=== PATIENT | male | born 1985 | race Caucasian/White ===

== ENCOUNTER → 2021-01-03 10:20 | Outpatient (CLI) | payer OTHER, SELFPAY ==
[2021-01-03 09:43] VITALS: BMI 30.4
[2021-01-03 12:34] LABS: Absolute Lymphocyte Count 2.31 X10^3/uL (0.83-4.51); Absolute Neutrophil Count 4.4 X10^3/uL (2.0-7.7); Basophil# 0.06 X10^3/uL; Basophil% 0.8 % (0-1); Eosinophil# 0.33 X10^3/uL; Eosinophils% 4.3 % (0-5); Hematocrit 46.9 % (40-54); Lymphocyte # 2.31 X10^3/ul (0.83-4.51); Lymphocyte % 29.9 % (19-41); Mean Corp Hgb Conc 34.1 g/dL (32-36); Mean Corpuscular Hgb 29.5 pg (27.0-32.0); Mean Corpuscular Volume 86.5 fL (80-94); Mean Platelet Vol. 10.7 fl (6.2-12.0); Monocyte# 0.62 X10^3/uL; NRBC Flagged by Analyzer 0 % (0-5); Neutrophil # 4.37 X10^3/uL (2.7-7.7); Neutrophil % 56.6 % (47-70); Platelet Count 266 K/mm3 (150-450); RBC Distribution Width CV 11.8 % (11.6-14.6); RBC Distribution Width SD 37.3 fl (35.1-43.9); Red Blood Count 5.42 M/mm3 (4.6-6.2); White Blood Count 7.7 K/mm3 (4.4-11.0)
[2021-01-03 13:04] LABS: ALB/GLOB Ratio 1.3 RATIO (0.9-2.4); AST(SGOT) 15 U/L (15-37); Alanine Aminotransfer ALT/SGPT 46 U/L (16-61); Albumin, Serum 4.5 g/dL (3.2-5.0); Alkaline Phosphatase 64 U/L (45-117); Anion Gap 3 (5-15); BUN 18 mg/dL (7-18); BUN/Creat Ratio 16.2 RATIO (10-20); Calcium,Total 9.6 mg/dL (8.5-10.1); Chloride 102 mmol/L (98-107); Creatinine, Serum 1.11 mg/dL (0.70-1.30); EST Glomerular Filtration Rate 80 mL/min (>60); Est Glom Filt Rate - Afr Amer 96 mL/min (>60); Globulin 3.5 g/dL (2.2-4.2); Glucose 101 mg/dL (74-106); Potassium 3.9 mmol/L (3.5-5.1); Sodium Level 137 mmol/L (136-145); T4 Free Direct 0.97 ng/dL (0.76-1.46); Thyroid Stim Hormone (TSH) 2.06 uIU/mL (0.358-3.74)
== END ==
PROVIDERS: PCP Internal Medicine; Referring Provider Internal Medicine; Visit Provider Internal Medicine
DX: K59.09 Other constipation (principal)
CPT/HCPCS: 36415; 80053; 84439; 84443; 85025

== ENCOUNTER → 2021-01-14 16:08 | Outpatient (CLI) | payer OTHER, SELFPAY ==
[2021-01-03 09:43] VITALS: BMI 30.4
== END ==
PROVIDERS: PCP Internal Medicine; Visit Provider Internal Medicine
DX: G47.10 Hypersomnia, unspecified (principal)
CPT/HCPCS: 95806

== ENCOUNTER → 2023-12-25 | Outpatient (CLI) | payer BC, SELFPAY ==
[2023-12-25 11:01] LABS: Absolute Lymphocyte Count 2.51 X10^3/uL (0.83-4.51); Absolute Neutrophil Count 4.5 X10^3/uL (2.0-7.7); Basophil# 0.06 X10^3/uL; Basophil% 0.7 % (0-1); Eosinophil# 0.54 X10^3/uL; Eosinophils% 6.5 % (0-5); Hematocrit 45.7 % (40-54); Hemoglobin 15.8 g/dL (13.0-16.5); Lymphocyte # 2.51 X10^3/ul (0.83-4.51); Lymphocyte % 30.2 % (19-41); Mean Corp Hgb Conc 34.6 g/dL (32-36); Mean Corpuscular Hgb 29.3 pg (27.0-32.0); Mean Corpuscular Volume 84.6 fL (80-94); Mean Platelet Vol. 9.9 fl (6.2-12.0); Monocyte# 0.63 X10^3/uL; Monocyte% 7.6 % (0-10); NRBC Flagged by Analyzer 0 % (0-5); Neutrophil # 4.53 X10^3/uL (2.7-7.7); Neutrophil % 54.5 % (47-70); Platelet Count 260 K/mm3 (150-450); RBC Distribution Width CV 12.6 % (11.6-14.6); RBC Distribution Width SD 38.5 fl (35.1-43.9); White Blood Count 8.3 K/mm3 (4.4-11.0)
[2023-12-25 11:26] LABS: ALB/GLOB Ratio 1.2 RATIO (0.9-2.4); AST(SGOT) 15 U/L (15-37); Alanine Aminotransfer ALT/SGPT 36 U/L (16-61); Albumin, Serum 4.2 g/dL (3.2-5.0); Alkaline Phosphatase 71 U/L (45-117); Anion Gap 4 (5-15); BUN 17 mg/dL (7-18); Calcium,Total 9.3 mg/dL (8.5-10.1); Chloride 103 mmol/L (98-107); Cholesterol 256 mg/dL (200); Creatinine, Serum 1.06 mg/dL (0.70-1.30); EST Glomerular Filtration Rate 83 mL/min (>60); Est Glom Filt Rate - Afr Amer 100 mL/min (>60); Ferritin 28 ng/mL (26-388); Globulin 3.4 g/dL (2.2-4.2); Glucose 100 mg/dL (74-106); High Density Lipoprotein 43 mg/dL; Iron 104 ug/dL (65-175); Iron Binding Capacity,Total 407 ug/dL (250-450); PERCENT IRON SATURATION 25.6 % (15.0-55.0); Potassium 3.8 mmol/L (3.5-5.1); Protein, Total 7.6 g/dL (6.4-8.2); Sodium Level 138 mmol/L (136-145); Thyroid Stim Hormone (TSH) 2.14 uIU/mL (0.358-3.74); Triglycerides 235 mg/dL; Very Low Density Lipoprotein 47 mg/dL (5-40)
[2023-12-27 09:23] LABS: Vitamin B12 559 pg/mL (211-911); Vitamin D,25 Hydroxy 26.7 ng/mL
== END | disposition home or self-care (01) ==
PROVIDERS: PCP Nurse Practitioner Family; Referring Provider Internal Medicine; Visit Provider Internal Medicine
DX: K59.04 Chronic idiopathic constipation (principal); Z13.220 Encounter for screening for lipoid disorders; Z13.21 Encounter for screening for nutritional disorder; K92.1 Melena; R14.0 Abdominal distension (gaseous)
CPT/HCPCS: 36415; 80053; 80061; 82306; 82607; 82728; 82746; 83540; 83550; 83735; 84443; 85025

== ENCOUNTER → 2024-05-20 | Outpatient (CLI) | payer BC, SELFPAY ==
[2024-05-20 10:46] LABS: Absolute Lymphocyte Count 2.14 X10^3/uL (0.83-4.51); Absolute Neutrophil Count 4.5 X10^3/uL (2.0-7.7); Basophil# 0.05 X10^3/uL; Basophil% 0.6 % (0-1); Eosinophil# 0.24 X10^3/uL; Eosinophils% 3.1 % (0-5); Hematocrit 44.7 % (40-54); Hemoglobin 15.6 g/dL (13.0-16.5); Lymphocyte # 2.14 X10^3/ul (0.83-4.51); Lymphocyte % 27.6 % (19-41); Mean Corp Hgb Conc 34.9 g/dL (32-36); Mean Corpuscular Hgb 29.8 pg (27.0-32.0); Mean Corpuscular Volume 85.5 fL (80-94); Monocyte% 10.3 % (0-10); NRBC Flagged by Analyzer 0 % (0-5); Neutrophil # 4.49 X10^3/uL (2.7-7.7); Neutrophil % 58.1 % (47-70); Platelet Count 246 K/mm3 (150-450); RBC Distribution Width CV 12.2 % (11.6-14.6); RBC Distribution Width SD 37.7 fl (35.1-43.9); Red Blood Count 5.23 M/mm3 (4.6-6.2); White Blood Count 7.7 K/mm3 (4.4-11.0)
[2024-05-20 11:57] LABS: ALB/GLOB Ratio 1.3 RATIO (0.9-2.4); AST(SGOT) 17 U/L (15-37); Alanine Aminotransfer ALT/SGPT 38 U/L (16-61); Albumin, Serum 4.1 g/dL (3.2-5.0); Alkaline Phosphatase 74 U/L (45-117); Anion Gap 1 (5-15); BUN 18 mg/dL (7-18); BUN/Creat Ratio 17.6 RATIO (10-20); Calcium,Total 9.5 mg/dL (8.5-10.1); Chloride 108 mmol/L (98-107); Cholesterol 168 mg/dL (200); Creatinine, Serum 1.02 mg/dL (0.70-1.30); EST Glomerular Filtration Rate 86 mL/min (>60); Est Glom Filt Rate - Afr Amer 104 mL/min (>60); Globulin 3.2 g/dL (2.2-4.2); Glucose 106 mg/dL (74-106); High Density Lipoprotein 45 mg/dL; Potassium 4.2 mmol/L (3.5-5.1); Protein, Total 7.3 g/dL (6.4-8.2); Sodium Level 141 mmol/L (136-145); Triglycerides 96 mg/dL; Very Low Density Lipoprotein 19 mg/dL (5-40)
[2024-05-23 08:02] LABS: Vitamin B12 533 pg/mL (211-911); Vitamin D,25 Hydroxy 31.9 ng/mL
== END | disposition home or self-care (01) ==
LOC: LAB 10:00
PROVIDERS: PCP Nurse Practitioner Family; Referring Provider Nurse Practitioner Family; Visit Provider Nurse Practitioner Family
DX: K59.04 Chronic idiopathic constipation (principal); Z13.220 Encounter for screening for lipoid disorders; Z13.21 Encounter for screening for nutritional disorder
CPT/HCPCS: 36415; 80053; 80061; 82306; 82607; 82746; 84443; 85025

== ENCOUNTER → 2024-11-20 | Outpatient (CLI) | payer BC, SELFPAY ==
[2024-11-20 16:25] LABS: Absolute Lymphocyte Count 2.92 X10^3/uL (0.83-4.51); Absolute Neutrophil Count 5.6 X10^3/uL (2.0-7.7); Basophil# 0.05 X10^3/uL; Basophil% 0.5 % (0-1); Eosinophil# 0.25 X10^3/uL; Eosinophils% 2.6 % (0-5); Hematocrit 42.3 % (40-54); Lymphocyte # 2.92 X10^3/ul (0.83-4.51); Lymphocyte % 30.6 % (19-41); Mean Corp Hgb Conc 35.5 g/dL (32-36); Mean Corpuscular Hgb 30.2 pg (27.0-32.0); Mean Corpuscular Volume 85.1 fL (80-94); Mean Platelet Vol. 10.2 fl (6.2-12.0); Monocyte# 0.62 X10^3/uL; Monocyte% 6.5 % (0-10); NRBC Flagged by Analyzer 0 % (0-5); Neutrophil # 5.64 X10^3/uL (2.7-7.7); Neutrophil % 59.3 % (47-70); Platelet Count 281 K/mm3 (150-450); RBC Distribution Width SD 37.1 fl (35.1-43.9); Red Blood Count 4.97 M/mm3 (4.6-6.2); White Blood Count 9.5 K/mm3 (4.4-11.0)
[2024-11-20 16:36] LABS: Erythrocyte Sedimentation Rate < 1 mm/hr (0-20)
[2024-11-20 23:52] LABS: ALB/GLOB Ratio 1.9 RATIO (0.9-2.4); AST(SGOT) 27 U/L (<=37); Alanine Aminotransfer ALT/SGPT 41 U/L (<=46); Albumin, Serum 4.7 g/dL (3.5-5.0); Alkaline Phosphatase 71 U/L (40-129); BUN 13 mg/dL (4-19); CRP < 3.00 mg/L (0.0-3.0); Creatinine, Serum 0.91 mg/dL (0.70-1.20); EST Glomerular Filtration Rate 109 (>60); Globulin 2.5 g/dL (2.2-4.2); Glucose 86 mg/dL (70-99); Protein, Total 7.2 g/dL (5.9-8.4); Total Bilirubin 0.45 mg/dL (0.00-1.30)
[2024-11-21 01:58] LABS: Anion Gap 16 (5-15); Calcium,Total 9.6 mg/dL (7.6-11.0); Carbon Dioxide 24.2 mmol/L (21.0-32.0); Chloride 101 mmol/L (98-108); Sodium Level 142 mmol/L (133-145)
== END | disposition home or self-care (01) ==
LOC: LAB 15:25
PROVIDERS: PCP Nurse Practitioner Family; Referring Provider Internal Medicine; Visit Provider Internal Medicine
DX: R19.4 Change in bowel habit (principal); K92.1 Melena; K63.89 Other specified diseases of intestine
CPT/HCPCS: 36415; 80053; 85025; 85652; 86140

== ENCOUNTER → 2025-02-03 | Outpatient (CLI) | payer BC, SELFPAY ==
[2025-02-03 09:22] LABS: Microalbumin,Random Urine < 12.0 mg/L (NO RANGE EST.); Microalbumin:Creatinine Ratio UNABLE TO CALCULATE mg/g CRE
[2025-02-03 09:29] LABS: Cholesterol 187 mg/dL (<=200); High Density Lipoprotein 46 mg/dL; Low Density Lipoprotein Calc. 115 mg/dL; Triglycerides 131 mg/dL; Very Low Density Lipoprotein 26 mg/dL (5-40); cholesterol:hdl ratio screen 4.06
[2025-02-05 16:09] LABS: PSA, Total 1.3 ng/mL (0.0-4.0)
== END | disposition home or self-care (01) ==
LOC: LAB 08:06
PROVIDERS: PCP Nurse Practitioner Family; Referring Provider Nurse Practitioner Family; Visit Provider Nurse Practitioner Family
DX: E78.5 Hyperlipidemia, unspecified (principal); Z12.5 Encounter for screening for malignant neoplasm of prostate; R03.0 Elevated blood-pressure reading, without diagnosis of hypertension
CPT/HCPCS: 36415; 80061; 82043; 82570; 84153; 84443

== ENCOUNTER → 2025-04-02 | Outpatient (CLI) | payer BC, SELFPAY ==
--- OUTSIDE RECORDS SUMMARY | 2025-04-02 23:06 | XMS RPT_ITS | CCD ---
Author Organization [facility] Care Team Providers Care Grain Farmer Name Role Phone Albert RETORT FURNACE HELPER-CMagaly Primary Care Provider Dr. Jackson Timmons MD Attending Provider Dr. Jackson Timmons MD Referring Provider [phone] Magaly Lewis Attending Provider Albert MCDOWELL-CMagaly Referring Provider Magaly Price Attending Unavailable Magaly Price Referring Unavailable Magaly Price Primary Care Unavailable Jackson Timmons Attending Unavailable Jackson Timmons Referring Unavailable Magaly Price Primary Care Unavailable Jackson Timmons Attending Unavailable Magaly Price Primary Care Unavailable Magaly Price Attending Unavailable Magaly Price Referring Unavailable Magaly Price Primary Care Unavailable Medications Current Medications Medication Drug Class(es) Dates Sig (Normalized) Sig (Original) 24 hr buPROPion hydrochloride 300 mg extended release oral tablet (9 sources) Aminoketone Start: 04-04-2021 End: 07-28-2021 take 1 tablet by mouth once daily in the morning Bupropion Hcl 300 mg tablet extended release 24 hr Active 300 mg PO EVERY MORNING July 28, 2021 10:20am Start: 02-14-2021 End: 04-04-2021 take 1 tablet by mouth once daily in the morning Bupropion Hcl (Wellbutrin Xl) 150 mg tablet extended release 24 hr Discontinued 150 mg PO EVERY MORNING February 14, 2021 12:00am April 04, 2021 9:02am ipratropium bromide 0.042 mg/actuat metered dose nasal spray (3 sources) Anticholinergic Start: 02-14-2021 Ipratropium Br omide 42 mcg (0.06 %) spray,non-aerosol Active 2 NMA INTRANASAL 3 to 4 times per day as needed for allergy symptoms February 14, 2021 12:00am administer into each nostril Start: 02-14-2021 take 1 spray(s) nasa l route three to four times daily Ipratropium [place] Active 2 SPRAY INTRANASAL 3 to 4 times per day February 14, 2021 12:00am administer into each nostril melatonin 10 mg oral tablet (3 sources) Start: 12-31-2020 take 2 tablets by mouth at bedtime as needed Melatonin 10 mg tablet Active 20 mg PO BEDTIME as needed December 31, 2020 12:00am Start: 12-31-2020 take 20 mg by mouth at bedtime Melatonin Active 20 MG PO BEDTIME December 31, 2020 12:00am [place]-3 Fatty Acids (1 source) Start: 12-31-2020 take 1000 mg by mout h once daily [place]-3 Fatty Acids Active 1000 MG PO DAILY December 31, 2020 12:00am [place]-3 Fatty Acids 1,000 mg capsule (2 sources) Start: 12-31-2020 take 1 capsule by mouth once daily [place]-3 Fatty Acids 1,000 mg capsule Active 1000 mg PO DAILY December 31, 2020 12:00am psyllium 400 mg oral capsule (3 sources) Start: 12-31-2020 Psyllium Husk (Metamucil) 0.4 gram capsule Active 0.4 g PO DAILY December 31, 2020 12:00am Valerian Root (3 sources) Start: 12-31-2020 take 1 capsule by mouth at bedtime Valerian Root 100 mg capsule Active 100 mg PO AT BEDTIME December 31, 2020 12:00am Start: 12-31-2020 take 100 mg by mouth at bedtim e Valerian Root Active 100 MG PO AT BEDTIME December 31, 2020 12:00am Completed/Discontinued Medications Medication Drug Class(es) Dates Sig (Normalized) Sig (Original) biotin 1 mg oral capsule (3 sources) Start: 12-31-2020 End: 04-04-2021 take 1 capsule by mouth once daily Biotin 1 mg capsule Discontinued 1 mg PO DAILY December 31, 2020 12:00am April 04, 2021 8:53am 24 hr guanFACINE 1 mg extended release oral tablet (3 sources) Central alpha-2 Adrenergic Agonist Start: 01-03-2021 End: 02-14-2021 Guanfacine 1 mg tablet extended release 24 hr Discontinued 1 mg PO EVERY EVENING 60 January 03, 2021 12:00am February 14, 2021 8:06am Start 1 mg daily for 2 weeks. May increase if needed to 2 mg magnesium oxide 400 mg oral tablet (3 sources) Start: 12-31-2020 End: 02-14-2021 take 1 tablet by mouth once daily Magnesium Oxide 400 mg (241.3 mg magnesium) tablet Discontinued 400 mg PO DAILY December 31, 2020 12:00am February 14, 2021 8:06am Problems Active Problems Problem Classification Problem Date Documented Da te Episodic/Chronic Attention-deficit, conduct, and disruptive behavior disorders (3 sources) Attention deficit hyperactivity disorder; Translations: [Attention-deficit hyperactivity disorder, unspecified type] 01-03-2021 Chronic Disorders of lipid metabolism (1 source) Hyperlipidemia, unspecified; Translations: [Hyperlipidemia, unspecified] Onset: 5 Chronic Disorders usually diagnosed in infancy, childhood, or adolescence (3 sources) Attention deficit hyperactivity disorder, predominantly inattentive type; Translations: [Other specified behavioral and emotional disorders with onset usually occurring in childhood and adolescence] 01-03-2021 Chronic Gastrointestinal hemorrhage (1 source) Melena; Translations: [Melena] Onset: 5 Episodic Other gastrointestinal disorders (1 source) Chronic idiopathic constipation; Translations: [Chronic idiopathic constipation] Onset: 4 Chronic Other gastrointestinal disorders (3 sources) Gastrointestinal tract problem; Translations: [Other specified symptoms and signs involving the digestive system and abdomen] 12-31-2020 Episodic Other gastrointestinal disorders (3 sources) Chronic constipation; Translations: [Other constipation] 01-03-2021 Episodic Other gastrointestinal disorders (3 sources) Constipation; Translations: [Constipation, unspecified] 01-03-2021 Episodic Other gastrointestinal disorders (2 sources) Change in bowel habit; Translations: [Change in bowel habit] Onset: 5 Episodic Other gastrointestinal disorders (1 source) Other specified diseases of intestine; Translations: [Other specified diseases of intestine] Onset: 5 Episodic Other infections; including parasitic (3 sources) History of Lyme disease; Translations: [Personal history of other infectious and parasitic diseases] 01-03-2021 Episodic Other nervous system disorders (3 sources) Personal history of other diseases of the nervous system and sense organs; Translations: [History of nystagmus] 12-31-2020 Episodic Other upper respiratory disease (3 sources) Seasonal allergy; Translations: [Other seasonal allergic rhinitis] 12-31-2020 Chronic Residual codes; unclassified (3 sources) Not getting enough sleep; Translations: [Sleep deprivation] 12-31-2020 Episodic Past or Other Problems Problem Classification Problem Date Documented Da te Episodic/Chronic Unclassified (3 sources) h/o cat scratch fever 04-09-2022 Results Test Name Value Interpretation Reference Range Facility PSA Total (Rflx Free)on 01-18 COMMENT Comment Normal . [facility] Comment on above: Result Comment: The percent free PSA is performed on a reflex basis only when the total PSA is between 4.0 and 10.0 ng/mL. Performed at: [address] [id number] Wagon Driller: Juliocesar Peterson PhD, Phone: [phone] Performed By: #### L 503.0105, L506.0250, L501.9520, L506.1000, L100.0100, L500.4100, L500.4050 #### [facility] [address] [place], [address] PSA, TOTAL 1.3 ng/mL Normal 0.0-4.0 [facility] Comment on above: Result Comment: Chuy GRAY methodology. According to the [place] [employer], Serum PSA should decrease and remain at undetectable levels after radical prostatectomy. The AUA defines biochemical recurrence as an initial PSA value 0.2 ng/mL or greater followed by a subsequent confirmatory PSA value 0.2 ng/mL or greater. Values obtained with different assay methods or kits cannot be used interchangeably. Results cannot be interpreted as absolute evidence of the presence or absence of malignant disease. Performed By: #### L 503.0105, L506.0250, L501.9520, L506.1000, L100.0100, L500.4100, L500.4050 #### [facility] [address] [place], [address] Calculated very low density lipoprotein (VLDL) cholesterol measurementOrdered By: Magaly Price on 02-03-2025 Calculated very low density lipoprotein (VLDL) cholesterol measurement 26 mg/dL 5-40 [facility] LDL calc ser/plasOrdered By: Magaly Price on 02-03-2025 Cholesterol in LDL [Mass/Vol] 115 mg/dL [facility] Comment on above: Hmmflggxiz=108-706 m g/dL & Higher Uzij=984 mg/dL or greater Lipid Profileon 02-03-2025 CHOL:HDL 4.06 Normal [facility] Comment on above: Performed By: #### L 3110.0100, L502.0250, L501.9520, L500.4100 #### [facility] [address] [place], [place], [id number] Cholesterol [Mass/Vol] 187 mg/dL Normal <=200 [facility] Comment on above: Result Comment: Chol esterol level, Desirable <200 mg/dL Borderline high cholesterol 200-239 mg/dL High cholesterol >=240 mg/dL Recommendations of the NCEP Adult Treatment Panel for the following risk-cutoff thresholds for the [place] population. Performed By: #### L 3110.0100, L502.0250, L501.9520, L500.4100 #### [facility] [address] [place], [address] Cholesterol in HDL [Mass/Vol] 46 mg/dL Normal [facility] Comment on above: Result Comment: Angela onal Cholesterol Education Program (NCEP) guidelines: <40 mg/dL: Low HDL-cholesterol (major risk factor for CHD) >= 60 mg/dL: High HDL-cholesterol (negative risk factor for CHD) HDL-cholesterol is affected by a number of factors, e.g. smoking, exercise, hormones, sex and age. Performed By: #### L 3110.0100, L502.0250, L501.9520, L500.4100 #### [facility] [address] [place], [address] Cholesterol in LDL [Mass/Vol] 115 mg/dL Normal [facility] Comment on above: Result Comment: Bord pzujte=722-681 mg/dL Higher Vfxt=415 mg/dL or greater Performed By: #### L 3110.0100, L502.0250, L501.9520, L500.4100 #### [facility] [address] [place], [address] Cholesterol in VLDL [Mass/Vol] 26 mg/dL Normal 5-40 [facility] Comment on above: Performed By: #### L 3110.0100, L502.0250, L501.9520, L500.4100 #### [facility] [address] [place], [address] Triglyceride [Mass/Vol] 131 mg/dL Normal [facility] Comment on above: Result Comment: The drugs N-Acetylcysteine and Metamizole may falsely depress this assay. Normal range: <150 mg/dL Borderline High: 150-199 mg/dL High: 200-499 mg/dL Very High: >500 mg/dL Performed By: #### L 3110.0100, L502.0250, L501.9520, L500.4100 #### [facility] [address] [place], [address] Microalb:Creat Ratio,Random URon 02-03-2025 Creatinine [Mass/Vol] 205.00 mg/dL Normal 39.00-259.00 [facility] Comment on above: Performed By: #### L 3110.0100, L502.0250, L501.9520, L500.4100 #### [facility] [address] [place], [address] MALB:CREAT UNABLE TO CALCULATE Normal [facility] Comment on above: Performed By: #### L 3110.0100, L502.0250, L501.9520, L500.4100 #### [facility] [address] [place], [address] MICROALBUMIN,UR < 12.0 Normal NO RANGE EST. [facility] Comment on above: Performed By: #### L 3110.0100, L502.0250, L501.9520, L500.4100 #### [facility] [address] [place], [address] Microalbumin/creat ratio urO rdered By: Magaly Price on 02-03-2025 Urine microalbumin/creatinine ratio measurement UNABLE TO CALCULATE mg/g CRE [facility] No Panel InformationOrdered By: Magaly Price on 02-03-2025 Prostate Specific Antigen Comment . [facility] Comment on above: The percent free PSA is performed on a reflex basis onlywhen the total PSA is between 4.0 and 10.0 ng/mL.Performed at: [facility] [place] [id number] Director: Juliocesar Peterson PhD, Phone: [phone] Random urine creatinine trenton urement (mass/volume)Ordered By: Magaly Price on 02-03-2025 Creatinine Unsp time (U) [Mass/Vol] 205.00 mg/dL 39.00-259.00 [facility] Screening total cholesterol/ high density lipoprotein (HDL) cholesterol ratioOrdered By: Magaly Price on 02-03-2025 Cholesterol.total/Cholest tania in HDL [Mass ratio] 4.06 {ratio} [facility] Serum or plasma cholesterol in HDL measurement (mass/volume)Ordered By: Magaly Price on 02-03-2025 Cholesterol in HDL [Mass/Vol] 46 mg/dL >40 [facility] Comment on above: National Cholesterol Education Program (NCEP) guidelines:<40 mg/dL: Low HDL-cholesterol (major risk factor for CHD)>= 60 mg/dL: High HDL-cholesterol (negative risk factor for CHD)HDL-cholesterol is affected by a number of factors, e.g. smoking, exercise, hormones, sex and age. Serum or plasma cholesterol measurement (mass/volume)Ordered By: Magaly Price on 02-03-2025 Cholesterol [Mass/Vol] 187 mg/dL <201 [facility] Comment on above: Cholesterol level, D esirable <200 mg/dLBorderline high cholesterol 200-239 mg/dLHigh cholesterol >=240 mg/dLRecommendations of the NCEP Adult Treatment Panel for the following risk-cutoff thresholds for the [place] population. TSH DL <= 0.005 mIU/L QnOrde red By: Magaly Price on 02-03-2025 TSH Qn 1.810 uIU/mL 0.300-4.200 [facility] Thyroid Stim Hormone (TSH)on 02-03-2025 TSH 1.810 uIU/mL Normal 0.300-4.200 [facility] Comment on above: Performed By: #### L 3110.0100, L502.0250, L501.9520, L500.4100 #### [facility] [address] [place], [place], [id number] Triglycerides measurementOrd ered By: Magaly Price on 02-03-2025 Triglyceride [Mass/Vol] 131 mg/dL <199 [facility] Comment on above: The drugs N-Acetylcy steine and Metamizole may falsely depress this assay. Normal range: <150 mg/dLBorderline High: 150-199 mg/dLHigh: 200-499 mg/dLVery High: >500 mg/dL Urine albumin measurement wi detection limit of 20 mg/L or less (mass/volume)Ordered By: Magaly Price on 02-03-2025 Albumin DL <= 20 mg/L (U) [Mass/Vol] < 12.0 mg/L NO RANGE EST. [facility] Comprehensive Metabolic Prof ilon 11-21-2024 Calcium [Mass/Vol] 9.6 mg/dL Normal 7.6-11.0 [facility] Comment on above: Performed By: #### L 503.0105, L506.0250, L501.9520, L506.1000, L100.0100, L500.4100, L500.4050 #### [facility] [address] [place], [address] Chloride [Moles/Vol] 101 mmol/L Normal 98-108 [facility] Comment on above: Performed By: #### L 503.0105, L506.0250, L501.9520, L506.1000, L100.0100, L500.4100, L500.4050 #### [facility] [address] [place], [address] CO2 [Moles/Vol] 24.2 mmol/L Normal 21.0-32.0 [facility] Comment on above: Performed By: #### L 503.0105, L506.0250, L501.9520, L506.1000, L100.0100, L500.4100, L500.4050 #### [facility] [address] [place], [address] GAP 16 High 5-15 [facility] Comment on above: Performed By: #### L 503.0105, L506.0250, L501.9520, L506.1000, L100.0100, L500.4100, L500.4050 #### [facility] [address] [place], [address] Potassium [Moles/Vol] 4.0 mmol/L Normal 3.3-5.1 [facility] Comment on above: Performed By: #### L 503.0105, L506.0250, L501.9520, L506.1000, L100.0100, L500.4100, L500.4050 #### [facility] [address] [place], [address] Sodium [Moles/Vol] 142 mmol/L Normal 133-145 [facility] Comment on above: Performed By: #### L 503.0105, L506.0250, L501.9520, L506.1000, L100.0100, L500.4100, L500.4050 #### [facility] [address] [place], [place], [id number] Absolute lymphocyte countOrd ered By: Jackson Joshua on 11-20-2024 Lymphocytes Auto (Unsp spec) [#/Vol] 2.92 10*3/uL 0.83-4.51 [facility] Absolute neutrophil countOrd ered By: Jackson Joshua on 11-20-2024 Neutrophils (Bld) [#/Vol] 5.6 10*3/uL 2.0-7.7 [facility] Anion gap in Serum or Plasma Ordered By: Jackson Joshua on 11-20-2024 Anion gap [Moles/Vol] 16 mmol/L High 5-15 [facility] Automated lymphocyte count a s percentage of total leukocytesOrdered By: Jackson Joshua on 11-20-2024 Lymphocytes/100 WBC Auto (Unsp spec) 30.6 % 19-41 [facility] BUN/creatinine ratioOrdered By: Jackson Joshua on 11-20-2024 Urea nitrogen/Creatinine [Mass ratio] 14.0 mg/mg 10-20 [facility] Basophil percentageOrdered B y: Jackson Joshua on 11-20-2024 Basophils/100 WBC (Bld) 0.5 % 0-1 [facility] Bilirubin, totalOrdered By: Jackson Joshua on 11-20-2024 Bilirubin [Mass/Vol] 0.45 mg/dL 0.00-1.30 [facility] CBC W/Diff, Automatedon Absolute Lymph 2.92 X10 3/uL Normal 0.83-4.51 [facility] Comment on above: Performed By: #### L 503.0105, L506.0250, L501.9520, L506.1000, L100.0100, L500.4100, L500.4050 #### [facility] [address] [place], [address] Absolute Neut 5.6 X10 3/uL Normal 2.0-7.7 [facility] Comment on above: Performed By: #### L 503.0105, L506.0250, L501.9520, L506.1000, L100.0100, L500.4100, L500.4050 #### [facility] [address] [place], [address] Basophils/100 WBC (Bld) 0.5 % Normal 0-1 [facility] Comment on above: Performed By: #### L 503.0105, L506.0250, L501.9520, L506.1000, L100.0100, L500.4100, L500.4050 #### [facility] [address] [place], [address] Eosinophils/100 WBC (Bld) 2.6 % Normal 0-5 [facility] Comment on above: Performed By: #### L 503.0105, L506.0250, L501.9520, L506.1000, L100.0100, L500.4100, L500.4050 #### [facility] [address] [place], [address] Erythrocyte distribution width (RBC) [Ratio] 12.0 % Normal 11.6-14.6 [facility] Comment on above: Performed By: #### L 503.0105, L506.0250, L501.9520, L506.1000, L100.0100, L500.4100, L500.4050 #### [facility] [address] [place], [address] Hematocrit (Bld) [Volume fraction] 42.3 % Normal 40-54 [facility] Comment on above: Performed By: #### L 503.0105, L506.0250, L501.9520, L506.1000, L100.0100, L500.4100, L500.4050 #### [facility] [address] [place], [address] Hemoglobin (Bld) [Mass/Vol] 15.0 g/dL Normal 13.0-16.5 [facility] Comment on above: Performed By: #### L 503.0105, L506.0250, L501.9520, L506.1000, L100.0100, L500.4100, L500.4050 #### [facility] [address] [place], [address] IG% 0.500 Normal 0.0-0.9 [facility] Comment on above: Result Comment: IG% - Immature Granulocytes (promyelocytes, myelocytes and metamyelocytes) > 1% indicates that a LEFT SHIFT is Present. Performed By: #### L 503.0105, L506.0250, L501.9520, L506.1000, L100.0100, L500.4100, L500.4050 #### [facility] [address] [place], [address] Lymphocytes/100 WBC (Bld) 30.6 % Normal 19-41 [facility] Comment on above: Performed By: #### L 503.0105, L506.0250, L501.9520, L506.1000, L100.0100, L500.4100, L500.4050 #### [facility] [address] [place], [address] MCH (RBC) [Entitic mass] 30.2 pg Normal 27.0-32.0 [facility] Comment on above: Performed By: #### L 503.0105, L506.0250, L501.9520, L506.1000, L100.0100, L500.4100, L500.4050 #### [facility] [address] [place], [address] MCHC (RBC) [Mass/Vol] 35.5 g/dL Normal 32-36 [facility] Comment on above: Performed By: #### L 503.0105, L506.0250, L501.9520, L506.1000, L100.0100, L500.4100, L500.4050 #### [facility] [address] [place], [address] MCV (RBC) [Entitic vol] 85.1 fL Normal 80-94 [facility] Comment on above: Performed By: #### L 503.0105, L506.0250, L501.9520, L506.1000, L100.0100, L500.4100, L500.4050 #### [facility] [address] [place], [address] Monocytes/100 WBC (Bld) 6.5 % Normal 0-10 [facility] Comment on above: Performed By: #### L 503.0105, L506.0250, L501.9520, L506.1000, L100.0100, L500.4100, L500.4050 #### [facility] [address] [place], [address] Neutrophils/100 WBC (Bld) 59.3 % Normal 47-70 [facility] Comment on above: Performed By: #### L 503.0105, L506.0250, L501.9520, L506.1000, L100.0100, L500.4100, L500.4050 #### [facility] [address] [place], [address] Nucleated RBC (Bld) [#/Vol] 0 10*3/uL Normal 0-5 [facility] Comment on above: Performed By: #### L 503.0105, L506.0250, L501.9520, L506.1000, L100.0100, L500.4100, L500.4050 #### [facility] [address] [place], [address] Platelet mean volume (Bld) [Entitic vol] 10.2 fL Normal 6.2-12.0 [facility] Comment on above: Performed By: #### L 503.0105, L506.0250, L501.9520, L506.1000, L100.0100, L500.4100, L500.4050 #### [facility] [address] [place], [address] Platelets (Bld) [#/Vol] 281 10*3/uL Normal 150-450 [facility] Comment on above: Performed By: #### L 503.0105, L506.0250, L501.9520, L506.1000, L100.0100, L500.4100, L500.4050 #### [facility] [address] [place], [address] RBC (Bld) [#/Vol] 4.97 10*6/uL Normal 4.6-6.2 [facility] Comment on above: Performed By: #### L 503.0105, L506.0250, L501.9520, L506.1000, L100.0100, L500.4100, L500.4050 #### [facility] [address] [place], [address] RDW SD 37.1 fl Normal 35.1-43.9 [facility] Comment on above: Performed By: #### L 503.0105, L506.0250, L501.9520, L506.1000, L100.0100, L500.4100, L500.4050 #### [facility] [address] [place], [address] WBC (Bld) [#/Vol] 9.5 10*3/uL Normal 4.4-11.0 [facility] Comment on above: Performed By: #### L 503.0105, L506.0250, L501.9520, L506.1000, L100.0100, L500.4100, L500.4050 #### [facility] [address] [place], [address] CRPon 11-20-2024 C-REACTIVE PROT < 3.00 Normal 0.0-3.0 [facility] Comment on above: Performed By: #### L 503.0105, L506.0250, L501.9520, L506.1000, L100.0100, L500.4100, L500.4050 #### [facility] [address] [place], [place], [id number] CRP [Mass/Vol]Ordered By: Sudhir Joshua on 11-20-2024 C-Reactive Protein Extended Range < 3.00 mg/L 0.0-3.0 [facility] Carbon dioxide, total [Moles /volume] in Central venous bloodOrdered By: Jackson Joshua on 11-20-2024 CO2 [Moles/Vol] 24.2 mmol/L 21.0-32.0 [facility] Chloride assayOrdered By: Sudhir Joshua on 11-20-2024 Chloride [Moles/Vol] 101 mmol/L 98-108 [facility] Eosinophil percentageOrdered By: Jackson Joshua on 11-20-2024 Eosinophils/100 WBC (Bld) 2.6 % 0-5 [facility] Erythrocyte Sed Rateon 11-20 SED RATE < 1 Normal 0-20 [facility] Comment on above: Performed By: #### L 503.0105, L506.0250, L501.9520, L506.1000, L100.0100, L500.4100, L500.4050 #### [facility] [address] [place], [address] Erythrocyte distribution wid th ratioOrdered By: Jackson Joshua on 11-20-2024 Erythrocyte distribution width (RBC) [Ratio] 12.0 % 11.6-14.6 [facility] Erythrocyte distribution wid th standard deviationOrdered By: Jackson Joshua on 11-20-2024 Erythrocyte distribution width (RBC) [Entitic vol] 37.1 fL 35.1-43.9 [facility] Erythrocyte distribution width (RBC) [Ratio] 37.1 fl 35.1-43.9 [facility] Erythrocyte sedimentation ra teOrdered By: Jackson Joshua on 11-20-2024 ESR (Bld) [Velocity] mm/h 0-20 [facility] GFR/1.73 sq M.predicted mary g non-blacks MDRD (S/P/Bld) [Vol rate/Area]Ordered By: Jackson Joshua on 11-20-2024 Estimated GFR (MDRD) Non-Af Amer 109 >60 [facility] Comment on above: mL/min/1.73m2 CKD-EP I Creatinine Equation (2020) Glomerular filtration rate ( GFR) estimation/1.73 sq m using serum, plasma, or whole bOrdered By: Jackson Joshua on 11-20-2024 GFR/1.73 sq M.predicted among non-blacks MDRD (S/P/Bld) [Vol rate/Area] 109 mL/min/{1.73_m2} >60 [facility] Comment on above: mL/min/1.73m2 CKD-EP I Creatinine Equation (2020) Hematocrit Auto (Bld) [Volum e fraction]Ordered By: Jackson Joshua on 11-20-2024 Hematocrit (Bld) [Volume fraction] 42.3 % 40-54 [facility] Hemoglobin measurementOrdere d By: Jackson Joshua on 11-20-2024 Hemoglobin (Bld) [Mass/Vol] 15.0 g/dL 13.0-16.5 [facility] Immature granulocytes/100 WB C Auto (Bld)Ordered By: Jackson Joshua 11-20-2024 Immature granulocytes/100 WBC (Bld) 0.500 % 0.0-0.9 [facility] Comment on above: IG% - Immature Granu locytes (promyelocytes, myelocytes and metamyelocytes) > 1% indicates that a LEFT SHIFT is Present. Laboratory - Chemistry and C hemistry - challengeOrdered By: Jackson Joshua 11-20-2024 AST [Catalytic activity/Vol] 27 U/L <38 [facility] Lymphocytes Auto (Unsp spec) [#/Vol]Ordered By: Jackson Joshua 11-20-2024 Lymphocytes (Bld) [#/Vol] 2.92 10*3/uL 0.83-4.5 1 [facility] Lymphocytes/100 WBC Auto (Un sp spec)Ordered By: Jackson Joshua on 11-20-2024 Lymphocytes/100 WBC (Bld) 30.6 % 19-41 [facility] MCV (mean corpuscular volume ) determinationOrdered By: Jackson Joshua 11-20-2024 MCV (RBC) [Entitic vol] 85.1 fL 80-94 [facility] Mean corpuscular hemoglobin (MCH) determinationOrdered By: Jackson Joshua on 11-20-2024 MCH (RBC) [Entitic mass] 30.2 pg 27.0-32.0 [facility] Mean corpuscular hemoglobin concentration (MCHC) determinationOrdered By: Jackson Joshua on 11-20-2024 MCHC (RBC) [Mass/Vol] 35.5 g/dL 32-36 [facility] Mean platelet volume determi nationOrdered By: Jackson Joshua on 11-20-2024 Platelet mean volume (Bld) [Entitic vol] 10.2 fL 6.2-12.0 [facility] Monocyte percentageOrdered B y: Jackson Joshua on 11-20-2024 Monocytes/100 WBC (Bld) 6.5 % 0-10 [facility] Neutrophil percentageOrdered By: Jackson Joshua on 11-20-2024 Neutrophils/100 WBC (Bld) 59.3 % 47-70 [facility] Nucleated red blood cell per centageOrdered By: Jackson Joshua on 11-20-2024 Nucleated RBC/100 WBC (Bld) [Ratio] 0 % 0-5 [facility] Platelet countOrdered By: Sudhir Joshua on 11-20-2024 Platelets (Bld) [#/Vol] 281 10*3/uL 150-450 [facility] Potassium (Unsp spec) [Mass/ Vol]Ordered By: Jackson Joshua on 11-20-2024 Potassium [Moles/Vol] 4.0 mmol/L 3.3-5.1 [facility] Potassium measurement (mass/ volume)Ordered By: Jackson Joshua on 11-20-2024 Potassium (Unsp spec) [Mass/Vol] 4.0 mmol/L 3.3-5.1 [facility] RBC Auto (Bld) [#/Vol]Ordere d By: Jackson Joshua on 11-20-2024 RBC (Bld) [#/Vol] 4.97 10*6/uL 4.6-6.2 [facility] Serum creatinine measurement (mass/volume)Ordered By: Jackson Joshua on 11-20-2024 Creatinine [Mass/Vol] 0.91 mg/dL 0.70-1.20 [facility] Serum globulin measurementOr dered By: Jackson Joshua on 11-20-2024 Globulin (S) [Mass/Vol] 2.5 g/dL 2.2-4.2 [facility] Serum glucose measurement (m ass/volume)Ordered By: Jackson Joshua on 11-20-2024 Glucose [Mass/Vol] 86 mg/dL 70-99 [facility] Serum or plasma C reactive p rotein measurement (mass/volume)Ordered By: Jackson Joshua on 11-20-2024 CRP [Mass/Vol] mg/L 0.0-3.0 [facility] Serum or plasma alanine ball otransferase (ALT) measurementOrdered By: Jackson Joshua 11-20-2024 ALT [Catalytic activity/Vol] 41 U/L <47 [facility] Serum or plasma albumin t[place] urement (mass/volume)Ordered By: Jackson Joshua on 11-20-2024 Albumin [Mass/Vol] 4.7 g/dL 3.5-5.0 [facility] Serum or plasma albumin/glob ulin mass ratioOrdered By: Jackson Joshua on 11-20-2024 Albumin/Globulin [Mass ratio] 1.9 {ratio} 0.9-2.4 [facility] Serum or plasma alkaline crist[place] sphatase measurementOrdered By: Jackson Joshua 11-20-2024 ALP [Catalytic activity/Vol] 71 U/L 40-129 [facility] Serum or plasma calcium trent[place] urement (mass/volume)Ordered By: Jackson Joshua on 11-20-2024 Calcium [Mass/Vol] 9.6 mg/dL 7.6-11.0 [facility] Serum or plasma urea nitroge n measurement (mass/volume)Ordered By: Jackson Joshua on 11-20-2024 Urea nitrogen [Mass/Vol] 13 mg/dL 4-19 [facility] Sodium levelOrdered By: Mauricio Joshua on 11-20-2024 Sodium [Moles/Vol] 142 mmol/L 133-145 [facility] Total proteinOrdered By: Mikye Joshua on 11-20-2024 Protein [Mass/Vol] 7.2 g/dL 5.9-8.4 [facility] White blood cell (WBC) count Ordered By: Jackson Joshua on 11-20-2024 WBC (Bld) [#/Vol] 9.5 10*3/uL 4.4-11.0 [facility] Vitamin B12on 05-23-2024 Cobalamin (Vitamin B12) [Mass/Vol] 533 pg/mL Normal 211-911 [facility] Comment on above: Performed By: #### L 503.0105, L506.0250, L501.9520, L506.1000, L100.0100, L500.4100, L500.4050 #### [facility] [address] [place], [address] Vitamin D,25 Hydroxyon 05-23 Vitamin D 25-OH 31.9 ng/mL Normal [facility] Comment on above: Result Comment: Ynes min D 25(OH) Status Range Deficiency <20 ng/mL (50nmol/L) Insufficiency 20 - 30 ng/mL (50 - 75 nmol/L) Sufficiency 30 - 100 ng/mL (75 - 250 nmol/L) Toxicity >100 ng/mL (>250 nmol/L) Performed By: #### L 503.0105, L506.0250, L501.9520, L506.1000, L100.0100, L500.4100, L500.4050 #### [facility] [address] [place], [address] CBC W/Diff, Automatedon 08-3 Absolute Lymph 2.14 X10 3/uL Normal 0.83-4.51 [facility] Comment on above: Performed By: #### L 503.0105, L506.0250, L501.9520, L506.1000, L100.0100, L500.4100, L500.4050 #### [facility] [address] [place], [address] Absolute Neut 4.5 X10 3/uL Normal 2.0-7.7 [facility] Comment on above: Performed By: #### L 503.0105, L506.0250, L501.9520, L506.1000, L100.0100, L500.4100, L500.4050 #### [facility] [address] [place], [address] Basophils/100 WBC (Bld) 0.6 % Normal 0-1 [facility] Comment on above: Performed By: #### L 503.0105, L506.0250, L501.9520, L506.1000, L100.0100, L500.4100, L500.4050 #### [facility] [address] [place], [address] Eosinophils/100 WBC (Bld) 3.1 % Normal 0-5 [facility] Comment on above: Performed By: #### L 503.0105, L506.0250, L501.9520, L506.1000, L100.0100, L500.4100, L500.4050 #### [facility] [address] [place], [address] Erythrocyte distribution width (RBC) [Ratio] 12.2 % Normal 11.6-14.6 [facility] Comment on above: Performed By: #### L 503.0105, L506.0250, L501.9520, L506.1000, L100.0100, L500.4100, L500.4050 #### [facility] [address] [place], [address] Hematocrit (Bld) [Volume fraction] 44.7 % Normal 40-54 [facility] Comment on above: Performed By: #### L 503.0105, L506.0250, L501.9520, L506.1000, L100.0100, L500.4100, L500.4050 #### [facility] [address] [place], [address] Hemoglobin (Bld) [Mass/Vol] 15.6 g/dL Normal 13.0-16.5 [facility] Comment on above: Performed By: #### L 503.0105, L506.0250, L501.9520, L506.1000, L100.0100, L500.4100, L500.4050 #### [facility] [address] [place], [address] IG% 0.300 Normal 0.0-0.9 [facility] Comment on above: Result Comment: IG% - Immature Granulocytes (promyelocytes, myelocytes and metamyelocytes) > 1% indicates that a LEFT SHIFT is Present. Performed By: #### L 503.0105, L506.0250, L501.9520, L506.1000, L100.0100, L500.4100, L500.4050 #### [facility] [address] [place], [address] Lymphocytes/100 WBC (Bld) 27.6 % Normal 19-41 [facility] Comment on above: Performed By: #### L 503.0105, L506.0250, L501.9520, L506.1000, L100.0100, L500.4100, L500.4050 #### [facility] [address] [place], [address] MCH (RBC) [Entitic mass] 29.8 pg Normal 27.0-32.0 [facility] Comment on above: Performed By: #### L 503.0105, L506.0250, L501.9520, L506.1000, L100.0100, L500.4100, L500.4050 #### [facility] [address] [place], [address] MCHC (RBC) [Mass/Vol] 34.9 g/dL Normal 32-36 [facility] Comment on above: Performed By: #### L 503.0105, L506.0250, L501.9520, L506.1000, L100.0100, L500.4100, L500.4050 #### [facility] [address] [place], [address] MCV (RBC) [Entitic vol] 85.5 fL Normal 80-94 [facility] Comment on above: Performed By: #### L 503.0105, L506.0250, L501.9520, L506.1000, L100.0100, L500.4100, L500.4050 #### [facility] [address] [place], [address] Monocytes/100 WBC (Bld) 10.3 % High 0-10 [facility] Comment on above: Performed By: #### L 503.0105, L506.0250, L501.9520, L506.1000, L100.0100, L500.4100, L500.4050 #### [facility] [address] [place], [address] Neutrophils/100 WBC (Bld) 58.1 % Normal 47-70 [facility] Comment on above: Performed By: #### L 503.0105, L506.0250, L501.9520, L506.1000, L100.0100, L500.4100, L500.4050 #### [facility] [address] [place], [address] Nucleated RBC (Bld) [#/Vol] 0 10*3/uL Normal 0-5 [facility] Comment on above: Performed By: #### L 503.0105, L506.0250, L501.9520, L506.1000, L100.0100, L500.4100, L500.4050 #### [facility] [address] [place], [address] Platelet mean volume (Bld) [Entitic vol] 10.0 fL Normal 6.2-12.0 [facility] Comment on above: Performed By: #### L 503.0105, L506.0250, L501.9520, L506.1000, L100.0100, L500.4100, L500.4050 #### [facility] [address] [place], [address] Platelets (Bld) [#/Vol] 246 10*3/uL Normal 150-450 [facility] Comment on above: Performed By: #### L 503.0105, L506.0250, L501.9520, L506.1000, L100.0100, L500.4100, L500.4050 #### [facility] [address] [place], [address] RBC (Bld) [#/Vol] 5.23 10*6/uL Normal 4.6-6.2 [facility] Comment on above: Performed By: #### L 503.0105, L506.0250, L501.9520, L506.1000, L100.0100, L500.4100, L500.4050 #### [facility] [address] [place], [address] RDW SD 37.7 fl Normal 35.1-43.9 [facility] Comment on above: Performed By: #### L 503.0105, L506.0250, L501.9520, L506.1000, L100.0100, L500.4100, L500.4050 #### [facility] [address] [place], [address] WBC (Bld) [#/Vol] 7.7 10*3/uL Normal 4.4-11.0 [facility] Comment on above: Performed By: #### L 503.0105, L506.0250, L501.9520, L506.1000, L100.0100, L500.4100, L500.4050 #### [facility] [address] [place], [address] Comprehensive Metabolic [facility] 05-20-2024 Albumin [Mass/Vol] 4.1 g/dL Normal 3.2-5.0 [facility] Comment on above: Order Comment: LIPID N Performed By: #### L 503.0105, L506.0250, L501.9520, L506.1000, L100.0100, L500.4100, L500.4050 #### [facility] [address] [place], [address] Albumin/Globulin [Mass ratio] 1.3 {ratio} Normal 0.9-2.4 [facility] Comment on above: Order Comment: LIPID N Performed By: #### L 503.0105, L506.0250, L501.9520, L506.1000, L100.0100, L500.4100, L500.4050 #### [facility] [address] [place], [address] ALK P 74 U/L Normal 45-117 [facility] Comment on above: Order Comment: LIPID N Performed By: #### L 503.0105, L506.0250, L501.9520, L506.1000, L100.0100, L500.4100, L500.4050 #### [facility] [address] [place], [address] ALT [Catalytic activity/Vol] 38 U/L Normal 16-61 [facility] Comment on above: Order Comment: LIPID N Performed By: #### L 503.0105, L506.0250, L501.9520, L506.1000, L100.0100, L500.4100, L500.4050 #### [facility] [address] [place], [address] AST [Catalytic activity/Vol] 17 U/L Normal 15-37 [facility] Comment on above: Order Comment: LIPID N Performed By: #### L 503.0105, L506.0250, L501.9520, L506.1000, L100.0100, L500.4100, L500.4050 #### [facility] [address] [place], [address] Bilirubin [Mass/Vol] 0.60 mg/dL Normal 0.20-1.00 [facility] [place] Comment on above: Order Comment: LIPID N Result Comment: For patients on eltrombopag therapy, use of Dimension Harrold TBIL is not recommended. Performed By: #### L 503.0105, L506.0250, L501.9520, L506.1000, L100.0100, L500.4100, L500.4050 #### [facility] [address] [place], [address] BUN/CRE 17.6 RATIO Normal 10-20 [facility] Comment on above: Order Comment: LIPID N Performed By: #### L 503.0105, L506.0250, L501.9520, L506.1000, L100.0100, L500.4100, L500.4050 #### [facility] [address] [place], [address] CA,Total 9.5 mg/dL Normal 8.5-10.1 [facility] Comment on above: Order Comment: LIPID N Performed By: #### L 503.0105, L506.0250, L501.9520, L506.1000, L100.0100, L500.4100, L500.4050 #### [facility] [address] [place], [address] Chloride [Moles/Vol] 108 mmol/L High 98-107 [facility] Comment on above: Order Comment: LIPID N Performed By: #### L 503.0105, L506.0250, L501.9520, L506.1000, L100.0100, L500.4100, L500.4050 #### [facility] [address] [place], [address] CO2 [Moles/Vol] 32.0 mmol/L Normal 21.0-32.0 [facility] Comment on above: Order Comment: LIPID N Performed By: #### L 503.0105, L506.0250, L501.9520, L506.1000, L100.0100, L500.4100, L500.4050 #### [facility] [address] [place], [address] Creatinine [Mass/Vol] 1.02 mg/dL Normal 0.70-1.30 [facility] Comment on above: Order Comment: LIPID N Result Comment: The validity of the calculated GFR GFRAA in patients over 70 years has not been determined. Clinical correlation is essential. Performed By: #### L 503.0105, L506.0250, L501.9520, L506.1000, L100.0100, L500.4100, L500.4050 #### [facility] [address] [place], [address] EST GFR - AA 104 mL/min Normal >60 [facility] Comment on above: Order Comment: LIPID N Result Comment: Afri can French GFR Calc Performed By: #### L 503.0105, L506.0250, L501.9520, L506.1000, L100.0100, L500.4100, L500.4050 #### [facility] [address] [place], [address] GAP 1 Low 5-15 [facility] Comment on above: Order Comment: LIPID N Performed By: #### L 503.0105, L506.0250, L501.9520, L506.1000, L100.0100, L500.4100, L500.4050 #### [facility] [address] [place], [address] GFR/1.73 sq M.predicted among non-blacks MDRD (S/P/Bld) [Vol rate/Area] 86 mL/min/{1.73_m2} Normal >60 [facility] Comment on above: Order Comment: LIPID N Result Comment: Non- GFR Calc Performed By: #### L 503.0105, L506.0250, L501.9520, L506.1000, L100.0100, L500.4100, L500.4050 #### [facility] [address] [place], [address] Globulin (S) [Mass/Vol] 3.2 g/dL Normal 2.2-4.2 [facility] Comment on above: Order Comment: LIPID N Performed By: #### L 503.0105, L506.0250, L501.9520, L506.1000, L100.0100, L500.4100, L500.4050 #### [facility] [address] [place], [address] Glucose [Mass/Vol] 106 mg/dL Normal 74-106 [facility] Comment on above: Order Comment: LIPID N Result Comment: Fast ing Glucose result from 100 to 125 mg/dL suggests IMPAIRED HOMEOSTASIS per A.D.A. criteria. Performed By: #### L 503.0105, L506.0250, L501.9520, L506.1000, L100.0100, L500.4100, L500.4050 #### [facility] [address] [place], [address] Potassium [Moles/Vol] 4.2 mmol/L Normal 3.5-5.1 [facility] Comment on above: Order Comment: LIPID N Performed By: #### L 503.0105, L506.0250, L501.9520, L506.1000, L100.0100, L500.4100, L500.4050 #### [facility] [address] [place], [address] Sodium [Moles/Vol] 141 mmol/L Normal 136-145 [facility] Comment on above: Order Comment: LIPID N Performed By: #### L 503.0105, L506.0250, L501.9520, L506.1000, L100.0100, L500.4100, L500.4050 #### [facility] [address] [place], [address] T PROT 7.3 g/dL Normal 6.4-8.2 [facility] Comment on above: Order Comment: LIPID N Performed By: #### L 503.0105, L506.0250, L501.9520, L506.1000, L100.0100, L500.4100, L500.4050 #### [facility] [address] [place], [address] Urea nitrogen [Mass/Vol] 18 mg/dL Normal 7-18 [facility] Comment on above: Order Comment: LIPID N Performed By: #### L 503.0105, L506.0250, L501.9520, L506.1000, L100.0100, L500.4100, L500.4050 #### [facility] [address] [place], [address] Folates, (Folic Acid)on 04-22 FOLATES 15.40 ng/mL Normal 3.1-55.4 [facility] Comment on above: Order Comment: LIPID N Performed By: #### L 503.0105, L506.0250, L501.9520, L506.1000, L100.0100, L500.4100, L500.4050 #### [facility] [address] [place], [address] Lipid Profileon 05-20-2024 Cholesterol [Mass/Vol] 168 mg/dL Normal 200 [facility] Comment on above: Order Comment: LIPID N Result Comment: <200 mg/dL Desirable 200-240 mg/dL Borderline >240 mg/dL High Risk Performed By: #### L 503.0105, L506.0250, L501.9520, L506.1000, L100.0100, L500.4100, L500.4050 #### [facility] [address] [place], [address] Cholesterol in HDL [Mass/Vol] 45 mg/dL Normal [facility] Comment on above: Order Comment: LIPID N Result Comment: The drugs N-Acetylcysteine and Metamizole may falsely depress this assay. Reference Range HDL <40 mg/dL Low HDL Cholesterol HDL >or= 60 mg/dL High HDL Cholesterol Performed By: #### L 503.0105, L506.0250, L501.9520, L506.1000, L100.0100, L500.4100, L500.4050 #### [facility] [address] [place], [address] Cholesterol in LDL [Mass/Vol] 104 mg/dL Normal 0-130 [facility] Comment on above: Order Comment: LIPID N Performed By: #### L 503.0105, L506.0250, L501.9520, L506.1000, L100.0100, L500.4100, L500.4050 #### [facility] [address] [place], [address] Cholesterol in VLDL [Mass/Vol] 19 mg/dL Normal 5-40 [facility] Comment on above: Order Comment: LIPID N Performed By: #### L 503.0105, L506.0250, L501.9520, L506.1000, L100.0100, L500.4100, L500.4050 #### [facility] [address] [place], [address] Triglyceride [Mass/Vol] 96 mg/dL Normal [facility] Comment on above: Order Comment: LIPID N Result Comment: The drugs N-Acetylcysteine and Metamizole may falsely depress this assay. Serum Triglycerides Reference Interval Normal <150 mg/dL Borderline high 150 - 199 mg/dL High 200 - 499 mg/dL Very High > or = 500 mg/dL Performed By: #### L 503.0105, L506.0250, L501.9520, L506.1000, L100.0100, L500.4100, L500.4050 #### [facility] [address] [place], [address] Thyroid Stim Hormone (TSH)on 05-20-2024 TSH 1.760 uIU/mL Normal 0.358-3.740 [facility] Comment on above: Order Comment: LIPID N Performed By: #### L 503.0105, L506.0250, L501.9520, L506.1000, L100.0100, L500.4100, L500.4050 #### [facility] [address] [place], [address] Absolute lymphocyte countOrd ered By: Jackson Tres on 12-25-2023 Lymphocytes Auto (Unsp spec) [#/Vol] 2.51 10*3/uL 0.83-4.51 [facility] Automated lymphocyte count a s percentage of total leukocytesOrdered By: Jackson Joshua on 12-25-2023 Lymphocytes/100 WBC Auto (Unsp spec) 30.2 % 19-41 [facility] Basophil percentageOrdered B y: Jackson Joshua on 12-25-2023 Basophils/100 WBC (Bld) 0.7 % 0-1 [facility] Bilirubin [Mass/Vol] 0.60 mg/dL 0.20-1.00 [facility] Comment on above: For patients on eltr ombopag therapy, use of Dimension [place] TBIL is not recommended. Chloride [Moles/Vol] 103 mmol/L 98-107 [facility] Cholesterol [Mass/Vol] 256 mg/dL <200 [facility] Comment on above: <200 mg/dL Desirable 200-240 mg/dL Borderline >240 mg/dL High Risk Eosinophils/100 WBC (Bld) 6.5 % 0-5 [facility] Glucose [Mass/Vol] 100 mg/dL 74-106 [facility] Comment on above: Fasting Glucose resu lt from 100 to 125 mg/dL suggests IMPAIRED HOMEOSTASIS per A.D.A. criteria. Hemoglobin (Bld) [Mass/Vol] 15.8 g/dL 13.0-16.5 [facility] Monocytes/100 WBC (Bld) 7.6 % 0-10 [facility] Neutrophils (Bld) [#/Vol] 4.5 10*3/uL 2.0-7.7 [facility] Neutrophils/100 WBC (Bld) 54.5 % 47-70 [facility] Potassium [Moles/Vol] 3.8 mmol/L 3.5-5.1 [facility] Protein [Mass/Vol] 7.6 g/dL 6.4-8.2 [facility] Sodium [Moles/Vol] 138 mmol/L 136-145 [facility] Triglyceride [Mass/Vol] 235 mg/dL <199 [facility] Comment on above: The drugs N-Acetylcy steine and Metamizole may falsely depress this assay.Serum Triglycerides Reference Interval Normal <150 mg/dL Borderline high 150 - 199 mg/dL High 200 - 499 mg/dL Very High > or = 500 mg/dL WBC (Bld) [#/Vol] 8.3 10*3/uL 4.4-11.0 [facility] Determination of erythrocyte mean corpuscular volume (MCV)Ordered By: Jackson Joshua on 12-25-2023 MCV (RBC) [Entitic vol] 84.6 fL 80-94 [facility] Erythrocyte distribution wid th ratioOrdered By: Jackson Joshua on 12-25-2023 Erythrocyte distribution width (RBC) [Ratio] 12.6 % 11.6-14.6 [facility] Erythrocyte distribution wid th standard deviationOrdered By: Jackson Joshua on 12-25-2023 Erythrocyte distribution width (RBC) [Entitic vol] 38.5 fL 35.1-43.9 [facility] Hematocrit Auto (Bld) [Volum e fraction]Ordered By: Jackson Joshua on 12-25-2023 Hematocrit (Bld) [Volume fraction] 45.7 % 40-54 [facility] Immature granulocytes/100 WB C Auto (Bld)Ordered By: Jackson Joshua 12-25-2023 Immature granulocytes/100 WBC (Bld) 0.500 % 0.0-0.9 [facility] Comment on above: IG% - Immature Granu locytes (promyelocytes, myelocytes and metamyelocytes) > 1% indicates that a LEFT SHIFT is Present. Iron measurement (mass/mass) Ordered By: Jackson Joshua on 12-25-2023 Iron (Unsp spec) [Mass/Mass] 104 ug/dL 65-175 [facility] - Chemistry and C hemistry - challengeOrdered By: Jackson Joshua on 12-25-2023 Albumin/Globulin [Mass ratio] 1.2 {ratio} 0.9-2.4 [facility] ALP [Catalytic activity/Vol] 71 U/L 45-117 [facility] ALT [Catalytic activity/Vol] 36 U/L 16-61 [facility] Cholesterol in HDL [Mass/Vol] 43 mg/dL >40 [facility] Comment on above: The drugs N-Acetylcy steine and Metamizole may falsely depress this assay. Reference Range HDL <40 mg/dL Low HDL Cholesterol HDL >or= 60 mg/dL High HDL Cholesterol Cholesterol in LDL [Mass/Vol] 166 mg/dL 0-130 [facility] CO2 [Moles/Vol] 31.0 mmol/L 21.0-32.0 [facility] Cobalamin (Vitamin B12) [Mass/Vol] 559 pg/mL 211-911 [facility] Ferritin [Mass/Vol] 28 ng/mL 26-388 [facility] Globulin (S) [Mass/Vol] 3.4 g/dL 2.2-4.2 [facility] Magnesium [Mass/Vol] 2.0 mg/dL 1.6-2.6 [facility] Urea nitrogen/Creatinine [Mass ratio] 16.0 mg/mg 10-20 [facility] - Hematology and Cell countsOrdered By: Jackson Joshua on 12-25-2023 MCH (RBC) [Entitic mass] 29.3 pg 27.0-32.0 [facility] MCHC (RBC) [Mass/Vol] 34.6 g/dL 32-36 [facility] Nucleated RBC/100 WBC (Bld) [Ratio] 0 % 0-5 [facility] Platelet mean volume (Bld) [Entitic vol] 9.9 fL 6.2-12.0 [facility] Platelets (Bld) [#/Vol] 260 10*3/uL 150-450 [facility] No Panel InformationOrdered By: Jackson Joshua on 12-25-2023 Estimated GFR (MDRD) Amer 100 mL/min >60 [facility] Comment on above: GFR Calc Estimated GFR (MDRD) Non-Af Amer 83 mL/min >60 [facility] Comment on above: Non- GFR Calc Folate 13.80 ng/mL 3.1-55.4 [facility] Total Iron Binding Capacity 407 ug/dL 250-450 [facility] Vitamin D 25-Hydroxy 26.7 ng/mL [facility] Comment on above: Vitamin D 25(OH) Sta tus Range Deficiency <20 ng/mL (50nmol/L) Insufficiency 20 - 30 ng/mL (50 - 75 nmol/L) Sufficiency 30 - 100 ng/mL (75 - 250 nmol/L) Toxicity >100 ng/mL (>250 nmol/L) VLDL Cholesterol 47 mg/dL 5-40 [facility] RBC Auto (Bld) [#/Vol]Ordere d By: Jackson Joshua on 12-25-2023 RBC (Bld) [#/Vol] 5.40 10*6/uL 4.6-6.2 [facility] Serum or plasma calcium [place] urement (mass/volume)Ordered By: Jackson Joshua on 12-25-2023 Calcium [Mass/Vol] 9.3 mg/dL 8.5-10.1 [facility] Serum or plasma creatinine m easurement (mass/volume)Ordered By: Jackson Joshua on 12-25-2023 Creatinine [Mass/Vol] 1.06 mg/dL 0.70-1.30 [facility] Comment on above: The validity of the calculated GFR & GFRAA in patients over 70 years has not been determined. Clinical correlation is essential. Serum or plasma iron saturat ion measurement (mass fraction)Ordered By: Jackson Joshua on 12-25-2023 Iron saturation [Mass fraction] 25.6 % 15.0-55.0 [facility] Serum or plasma thyroid stim ulating hormone (TSH) measurement (units/volume)Ordered By: Jackson Joshua 12-25-2023 TSH Qn 2.14 uIU/mL 0.358-3.74 [facility] Serum or plasma urea nitroge n measurement (mass/volume)Ordered By: Jackson Joshua on 12-25-2023 Urea nitrogen [Mass/Vol] 17 mg/dL 7-18 [facility] Thin prep Papanicolaou smear with manual screeningOrdered By: Jackson Joshua on 12-25-2023 Thin prep Papanicolaou smear with manual screening 4.2 g/dL 3.2-5.0 [facility] Thin prep Papanicolaou smear with manual screening 15 U/L 15-37 [facility] Thin prep Papanicolaou smear with manual screening 4 5-15 [facility] Encounters Encounter Date Encounter Type Care Provider Facility Start: 02-03-2025 End: 02-03-2025 ambulatory Magaly Price NP-C Work Phone: [facility] Work Phone: Start: 02-03-2025 End: 02-03-2025 Patient encounter procedure Magaly DUFFYC -Laboratory Work Phone: Start: 02-03-2025 End: 02-03-2025 ambulatory Magaly Price Facility:[facility] Start: 11-20-2024 End: 11-20-2024 ambulatory Magaly Price NP-C Work Phone: [facility] Work Phone: Start: 11-20-2024 End: 11-20-[address] Jackson Timmons MD -Laboratory Work Phone: Start: 11-20-2024 End: 11-20-2024 ambulatory Jackson Timmons Facility:[facility] Start: 05-20-2024 End: 05-20-2024 ambulatory Magaly Price Facility:[facility] Start: 12-25-2023 End: 12-25-2023 ambulatory [facility] Work Phone: Start: 12-25-2023 End: 12-25-2023 Patient encounter procedure [facility]Laboratory Work Phone: Procedures Date Procedure Procedure Detail Performing Clinician Start: 02-03-2025 Prostate specific an tigen measurement Magaly Price NP-C Work Phone: Comment on above: Cristina ECLIA methodol ogy.According to the [employer], Serum PSAshould decrease and remain at undetectable levels afterradical prostatectomy. The AUA defines biochemicalrecurrence as an initial PSA value 0.2 ng/mL or greaterfollowed by a subsequent confirmatory PSA value 0.2 ng/mLor greater. Values obtained with different assay methods orkits cannot be used interchangeably. Results cannot beinterpreted as absolute evidence of the presence or absenceof malignant disease. Payers Date Payer Category Payer Self-pay [id number] 2024 Unknown [id number] Unknown [facility] *DO NOT USE* [id number] Unknown [id number] Unknown [id number] Unknown [id number] Unknown [id number] Social History Date Type Detail Facility Start: 04-04-2021 Tobacco smoking stat [facility] Unknown if ever smoked [facility] Start: 1985 Sex Assigned At Male [facility]: [facility] Start: 11-30-2024 Sex Male (finding) [facility] Evaluation note Note Date & Type Note Facility Evaluation note No assessment information availa ble [facility] Work Phone: Reason for referral (narrative) Note Date & Type Note Facility Reason for referral (narrative) No reason for referral information available [facility] Work Phone: Family History No Family History Records Found Relationship Condition Age at Onset Recorded Date/T dotty Not Specified Arthritis Unknown grandfather Malignant neoplasm of colon Unknown Malignant neoplasm Unknown mother Depression Unknown Hypertension Unknown Cerebrovascular accident (CVA) Unknown father Cardiac disease Unknown Summary Purpose Advance Directives No Advanced Directives Records Found Additional Source Comments Care Teams (unrecognized sec tion and content) Team Status: Active Member Role Status Dates DEEP Quinones Primary Care Provider Active Team Status: Inactive Member Role Status Dates Dr. Jackson Timmons MD Attending Provider, Referring Provider Active DEEP Quinones Primary Care Provider Active Team Status: Inactive Member Role Status Dates DEEP Quinones Primary Care Provider Active Start: November 20, 2024 End: November 20, 2024 Dr. Jackson Timmons MD Attending Provider Active Start: November 20, 2024 End: November 20, 2024 Dr. Jackson Timmons MD Referring Provider Active Start: November 20, 2024 End: November 20, 2024 Team Status: Inactive Member Role Status Dates DEEP Quinones Primary Care Provider Active Start: February 03, 2025 End: February 03, 2025 DEEP Quinones Attending Provider Active Start: February 03, 2025 End: February 03, 2025 DEEP Quinones Referring Provider Active Start: February 03, 2025 End: February 03, 2025 Goals (unrecognized section and content) Goals may be documented in a n alternate sectionGoals may be documented in an alternate sectionGoals may be documented in an alternate section (unrecognized sect ion and content) No Status Records Found INFORMATION SOURCE (unrecogn ized section and content) DATE CREATED AUTHOR 02/06/2025 [facility] FOR RECORDS PERTAINING TO PATIENTS WHO ARE OR HAVE BEEN ENROLLED IN A CHEMICAL DEPENDENCY/SUBSTANCEABUSE PROGRAM, SOME INFORMATION MAY BE OMITTED. This clinical summary was aggregated from multiple sources. Caution should be exercised in using it in the provision of clinical care. This summary normalizes information from multiple sources, and as a consequence, information in this document may materially change the coding, format and clinical context of patient data. In addition, data may be omitted in some cases. CLINICAL DECISIONS SHOULD BE BASED ON THE PRIMARY CLINICAL RECORDS. [employer] provides no warranty or guarantee of the accuracy or completeness of information in this document.
== END | disposition home or self-care (01) ==
LOC: LAB 15:31
PROVIDERS: PCP Nurse Practitioner Family; Referring Provider Internal Medicine; Visit Provider Internal Medicine
DX: F90.0 Attention-deficit hyperactivity disorder, predominantly inattentive type (principal)
CPT/HCPCS: 80307

== ENCOUNTER → 2025-05-26 | Outpatient (CLI) | payer BC, SELFPAY ==
--- OUTSIDE RECORDS SUMMARY | 2025-05-26 08:51 | XMS RPT_ITS | CCD ---
[facility] Providers Care Set Up Mold Technician Name Role Phone Albert CONTINUITY COORDINATOR-C, Magaly Primary Care Provider Soy Joshua MD, Dr. Paz Attending Provider Soy Josuha MD, Dr. Paz Referring Provider Albert CONTINUITY COORDINATOR-C, Magaly Attending Provider Albert CONTINUITY COORDINATOR-C, Magaly Referring Provider [phone] Albert CONTINUITY COORDINATOR-C, Magaly Primary Care Provider [phone] Krissy DE LA CRUZ, Dr. Choudhury Attending Provider Dr. Macey Rey MD Referring Provider [phone] Magaly Price Primary Care Unavailable Macey Rey Attending Unavailable Macey Rey Referring Unavailable Magaly Price Attending Unavailable Magaly Price Referring Unavailable Magaly Price Primary Care Unavailable Jackson Timmons Attending Unavailable Magaly Price Primary Care Unavailable Jackson Timmons Attending Unavailable Jackson Timmons Referring Unavailable Magaly Price Primary Care Unavailable Magaly Price Referring Unavailable Magaly Price Primary Care Unavailable Magaly Price Attending Unavailable Medications Current Medications Medication Drug Class(es) Dates Sig (Normalized) Sig (Original) 24 hr buPROPion hydrochloride 300 mg extended release oral tablet (12 sources) Aminoketone Start: 04-04-2021 End: 07-28-2021 take 1 tablet by mouth once daily in the morning Bupropion Hcl 300 mg tablet extended release 24 hr Active 300 mg PO EVERY MORNING 90 July 28, 2021 10:20am Start: 02-14-2021 End: 04-04-2021 take 1 tablet by mouth once daily in the morning Bupropion Hcl (Wellbutrin Xl) 150 mg tablet extended release 24 hr Discontinued 150 mg PO EVERY MORNING 30 February 14, 2021 12:00am April 04, 2021 9:02am ipratropium bromide 0.042 mg/actuat metered dose nasal spray (4 sources) Anticholinergic Start: 02-14-2021 Ipratropium Br omide 42 mcg (0.06 %) spray,non-aerosol Active 2 NMA INTRANASAL 3 to 4 times per day as needed for allergy symptoms 15 February 14, 2021 12:00am administer into each nostril Start: 02-14-2021 take 1 spray(s) nasa l route three to four times daily Ipratropium [place] Active 2 SPRAY INTRANASAL 3 to 4 times per day February 14, 2021 12:00am administer into each nostril melatonin 10 mg oral tablet (4 sources) Start: 12-31-2020 take 2 tablets by mouth at bedtime as needed Melatonin 10 mg tablet Active 20 mg PO BEDTIME as needed December 31, 2020 12:00am Start: 12-31-2020 take 20 mg by mouth at bedtime Melatonin Active 20 MG PO BEDTIME December 31, 2020 12:00am Granton-3 Fatty Acids (1 source) Start: 12-31-2020 take 1000 mg by mout h once daily Granton-3 Fatty Acids Active 1000 MG PO DAILY December 31, 2020 12:00am Granton-3 Fatty Acids 1,000 mg capsule (3 sources) Start: 12-31-2020 take 1 capsule by mouth once daily Granton-3 Fatty Acids 1,000 mg capsule Active 1000 mg PO DAILY December 31, 2020 12:00am psyllium 400 mg oral capsule (4 sources) Start: 12-31-2020 Psyllium Husk (Metamucil) 0.4 gram capsule Active 0.4 g PO DAILY December 31, 2020 12:00am Valerian Root (4 sources) Start: 12-31-2020 take 1 capsule by mouth at bedtime Valerian Root 100 mg capsule Active 100 mg PO AT BEDTIME December 31, 2020 12:00am Start: 12-31-2020 take 100 mg by mouth at bedtim e Valerian Root Active 100 MG PO AT BEDTIME December 31, 2020 12:00am Completed/Discontinued Medications Medication Drug Class(es) Dates Sig (Normalized) Sig (Original) biotin 1 mg oral capsule (4 sources) Start: 12-31-2020 End: 04-04-2021 take 1 capsule by mouth once daily Biotin 1 mg capsule Discontinued 1 mg PO DAILY December 31, 2020 12:00am April 04, 2021 8:53am 24 hr guanFACINE 1 mg extended release oral tablet (4 sources) Central alpha-2 Adrenergic Agonist Start: 01-03-2021 End: 02-14-2021 Guanfacine 1 mg tablet extended release 24 hr Discontinued 1 mg PO EVERY EVENING 60 0 January 03, 2021 12:00am February 14, 2021 8:06am Start 1 mg daily for 2 weeks. May increase if needed to 2 mg magnesium oxide 400 mg oral tablet (4 sources) Start: 12-31-2020 End: 02-14-2021 take 1 tablet by mouth once daily Magnesium Oxide 400 mg (241.3 mg magnesium) tablet Discontinued 400 mg PO DAILY December 31, 2020 12:00am February 14, 2021 8:06am Problems Active Problems Problem Classification Problem Date Documented Da te Episodic/Chronic Attention-deficit, conduct, and disruptive behavior disorders (4 sources) Attention deficit hyperactivity disorder; Translations: [Attention-deficit hyperactivity disorder, unspecified type] 01-03-2021 Chronic Attention-deficit, conduct, and disruptive behavior disorders (1 source) Attention-deficit hyperactivity disorder, predominantly inattentive type; Translations: [Attention-deficit hyperactivity disorder, predominantly inattentive type] Onset: 5 Chronic Disorders of lipid metabolism (1 source) Hyperlipidemia, unspecified; Translations: [Hyperlipidemia, unspecified] Onset: 5 Chronic Disorders usually diagnosed in infancy, childhood, or adolescence (4 sources) Attention deficit hyperactivity disorder, predominantly inattentive type; Translations: [Other specified behavioral and emotional disorders with onset usually occurring in childhood and adolescence] 01-03-2021 Chronic Other gastrointestinal disorders (1 source) Chronic idiopathic constipation; Translations: [Chronic idiopathic constipation] Onset: 4 Chronic Other gastrointestinal disorders (4 sources) Gastrointestinal tract problem; Translations: [Other specified symptoms and signs involving the digestive system and abdomen] 12-31-2020 Episodic Other gastrointestinal disorders (4 sources) Chronic constipation; Translations: [Other constipation] 01-03-2021 Episodic Other gastrointestinal disorders (4 sources) Constipation; Translations: [Constipation, unspecified] 01-03-2021 Episodic Other infections; including parasitic (4 sources) History of Lyme disease; Translations: [Personal history of other infectious and parasitic diseases] 01-03-2021 Episodic Other nervous system disorders (4 sources) Personal history of other diseases of the nervous system and sense organs; Translations: [History of nystagmus] 12-31-2020 Episodic Other upper respiratory disease (4 sources) Seasonal allergy; Translations: [Other seasonal allergic rhinitis] 12-31-2020 Chronic Residual codes; unclassified (4 sources) Not getting enough sleep; Translations: [Sleep deprivation] 12-31-2020 Episodic Past or Other Problems Problem Classification Problem Date Documented Da te Episodic/Chronic Gastrointestinal hemorrhage (1 source) Melena; Translations: [Melena] Onset: 11-21-2024 Episodic Other gastrointestinal disorders (2 sources) Change in bowel habit; Translations: [Change in bowel habit] Onset: 11-21-2024 Episodic Other gastrointestinal disorders (1 source) Other specified diseases of intestine; Translations: [Other specified diseases of intestine] Onset: 11-21-2024 Episodic Unclassified (4 sources) h/o cat scratch fever 04-09-2022 Results Test Name Value Interpretation Reference Range Facility PSA Total (Rflx Free)on 01-18 COMMENT Comment Normal . [facility] Comment on above: Result Comment: The percent free PSA is performed on a reflex basis only when the total PSA is between 4.0 and 10.0 ng/mL. Performed at: [facility] [address] [id number] Operating Room Tech: Juliocesar Peterson PhD, Phone: [phone] Performed By: #### L 3110.0100, O702.5118, K044.9971, L500.7161 #### [facility] [place], [address] PSA, TOTAL 1.3 ng/mL Normal 0.0-4.0 [facility] Comment on above: Result Comment: Roch e ECLIA methodology. According to the [employer] [employer], Serum PSA should decrease and [...] of malignant disease. Performed By: #### L 3110.0100, L502.0250, L501.9520, L500.4100 #### [facility] [address] [place], [place], [id number] Calculated very low density lipoprotein (VLDL) cholesterol measurementOrdered By: Magaly Price on 02-03-2025 Calculated very low density lipoprotein (VLDL) cholesterol measurement 26 mg/dL 5-40 [facility] LDL calc ser/plasOrdered By: Magaly Price on 02-03-2025 Cholesterol in LDL [Mass/Vol] 115 mg/dL [facility] Comment on above: Bozscaerfn=296-337 m g/dL & Higher Iibq=254 mg/dL or greater Lipid Profileon 02-03-2025 CHOL:HDL 4.06 Normal [facility] Comment on above: Performed By: #### L 3110.0100, L502.0250, L501.9520, L500.4100 #### [facility] [address] [place], [place], [id number] Cholesterol [Mass/Vol] 187 mg/dL Normal <=200 [facility] Comment on above: Result Comment: Chol esterol level, Desirable <200 mg/dL Borderline high cholesterol 200-239 mg/dL High cholesterol >=240 mg/dL Recommendations of the NCEP Adult Treatment Panel for the following risk-cutoff thresholds for the [place] population. Performed By: #### L 3110.0100, L502.0250, L501.9520, L500.4100 #### [facility] [address] [place], [place], [id number] Cholesterol in HDL [Mass/Vol] 46 mg/dL Normal [facility] Comment on above: Result Comment: Angela onal Cholesterol Education Program (NCEP) guidelines: <40 mg/dL: Low HDL-cholesterol (major risk factor for CHD) >= 60 mg/dL: High HDL-cholesterol (negative risk factor for CHD) HDL-cholesterol is affected by a number of factors, e.g. smoking, exercise, hormones, sex and age. Performed By: #### L 3110.0100, L502.0250, L501.9520, L500.4100 #### [facility] [address] [place], [address] Cholesterol in LDL [Mass/Vol] 115 mg/dL Normal [facility] Comment on above: Result Comment: Bord epkfle=265-372 mg/dL Higher Fmvq=111 mg/dL or greater Performed By: #### L 3110.0100, L502.0250, L501.9520, L500.4100 #### [facility] [address] [place], [address] Cholesterol in VLDL [Mass/Vol] 26 mg/dL Normal 5-40 [facility] Comment on above: Performed By: #### L 3110.0100, L502.0250, L501.9520, L500.4100 #### [facility] [address] [place], [address] Triglyceride [Mass/Vol] 131 mg/dL Normal [facility] Comment on above: Result Comment: The drugs N-Acetylcysteine and Metamizole may falsely depress this assay. Normal range: <150 mg/dL Borderline High: 150-199 mg/dL High: 200-499 mg/dL Very High: >500 mg/dL Performed By: #### L 3110.0100, L502.0250, L501.9520, L500.4100 #### [facility] [address] [place], [address] Microalb:Creat Ratio,Random URon 02-03-2025 Creatinine [Mass/Vol] 205.00 mg/dL Normal 39.00-259.00 [facility] Comment on above: Performed By: #### L 3110.0100, L502.0250, L501.9520, L500.4100 #### [facility] [address] [place], [address] MALB:CREAT UNABLE TO CALCULATE Normal [facility] Comment on above: Performed By: #### L 3110.0100, L502.0250, L501.9520, L500.4100 #### [facility] [address] [place], [address] MICROALBUMIN,UR < 12.0 Normal NO RANGE EST. [facility] Comment on above: Performed By: #### L 3110.0100, L502.0250, L501.9520, L500.4100 #### [facility] [address] [place], [address] Microalbumin/creat ratio urO rdered By: Magaly Price on 02-03-2025 Urine microalbumin/creatinine ratio measurement UNABLE TO CALCULATE mg/g CRE [facility] No Panel InformationOrdered By: Magaly Price on 02-03-2025 Prostate Specific Antigen Comment . [facility] Comment on above: The percent free PSA is performed on a reflex basis onlywhen the total PSA is between 4.0 and 10.0 ng/mL.Performed at: - [address] [id number] Director: Juliocesar Peterson PhD, Phone: [phone] Random urine creatinine trenton urement (mass/volume)Ordered By: Magaly Price on 02-03-2025 Creatinine Unsp time (U) [Mass/Vol] 205.00 mg/dL 39.00-259.00 [facility] Screening total cholesterol/ high density lipoprotein (HDL) cholesterol ratioOrdered By: Magaly Price on 02-03-2025 Cholesterol.total/Cholest tania in HDL [Mass ratio] 4.06 {ratio} [facility] Serum or plasma cholesterol in HDL measurement (mass/volume)Ordered By: Magaly Price on 02-03-2025 Cholesterol in HDL [Mass/Vol] 46 mg/dL >40 [facility] Comment on above: National Cholesterol Education Program (NCEP) guidelines:<40 mg/dL: Low HDL-cholesterol (major risk factor for CHD)>= 60 mg/dL: High HDL-cholesterol (negative risk factor for CHD)HDL-cholesterol is affected by a number of factors, e.g. smoking, exercise, hormones, sex and age. Serum or plasma cholesterol measurement (mass/volume)Ordered By: Magaly Price on 02-03-2025 Cholesterol [Mass/Vol] 187 mg/dL <201 [facility] Comment on above: Cholesterol level, D esirable <200 mg/dLBorderline high cholesterol 200-239 mg/dLHigh cholesterol >=240 mg/dLRecommendations of the NCEP Adult Treatment Panel for the following risk-cutoff thresholds for the [place] population. TSH DL <= 0.005 mIU/L QnOrde red By: Magaly Price on 02-03-2025 TSH Qn 1.810 uIU/mL 0.300-4.200 [facility] Thyroid Stim Hormone (TSH)on 02-03-2025 TSH 1.810 uIU/mL Normal 0.300-4.200 [facility] Comment on above: Performed By: #### L 3110.0100, L502.0250, L501.9520, L500.4100 #### [facility] [place], [address] Triglycerides measurementOrd ered By: Magaly Price on 02-03-2025 Triglyceride [Mass/Vol] 131 mg/dL <199 [facility] Comment on above: The drugs N-Acetylcy steine and Metamizole may falsely depress this assay. Normal range: <150 mg/dLBorderline High: 150-199 mg/dLHigh: 200-499 mg/dLVery High: >500 mg/dL Urine albumin measurement wi detection limit of 20 mg/L or less (mass/volume)Ordered By: Magaly Price on 02-03-2025 Albumin DL <= 20 mg/L (U) [Mass/Vol] < 12.0 mg/L NO RANGE EST. [facility] Comprehensive Metabolic Prof ilon 11-21-2024 Calcium [Mass/Vol] 9.6 mg/dL Normal 7.6-11.0 [facility] Comment on above: Performed By: #### L 501.6710, L100.0100, L500.4050, L101.9900 #### [facility] [address] [place], [address] Chloride [Moles/Vol] 101 mmol/L Normal 98-108 [facility] Comment on above: Performed By: #### L 501.6710, L100.0100, L500.4050, L101.9900 #### [facility] [address] [place], [address] CO2 [Moles/Vol] 24.2 mmol/L Normal 21.0-32.0 [facility] Comment on above: Performed By: #### L 501.6710, L100.0100, L500.4050, L101.9900 #### [facility] [address] [place], [address] GAP 16 High 5-15 [facility] Comment on above: Performed By: #### L 501.6710, L100.0100, L500.4050, L101.9900 #### [facility] [address] [place], [address] Potassium [Moles/Vol] 4.0 mmol/L Normal 3.3-5.1 [facility] Comment on above: Performed By: #### L 501.6710, L100.0100, L500.4050, L101.9900 #### [facility] [address] [place], [address] Sodium [Moles/Vol] 142 mmol/L Normal 133-145 [facility] Comment on above: Performed By: #### L 501.6710, L100.0100, L500.4050, L101.9900 #### [facility] [address] [place], [address] Absolute lymphocyte countOrd ered By: Jackson Joshua on 11-20-2024 Lymphocytes Auto (Unsp spec) [#/Vol] 2.92 10*3/uL 0.83-4.51 [facility] Absolute neutrophil countOrd ered By: Jackson Joshua on 11-20-2024 Neutrophils (Bld) [#/Vol] 5.6 10*3/uL 2.0-7.7 [facility] Anion gap in Serum or Plasma Ordered By: Jackson Joshua on 11-20-2024 Anion gap [Moles/Vol] 16 mmol/L High 5-15 [facility] Automated lymphocyte count a s percentage of total leukocytesOrdered By: Jackson Joshua on 11-20-2024 Lymphocytes/100 WBC Auto (Unsp spec) 30.6 % 19-41 [facility] BUN/creatinine ratioOrdered By: Jackson Joshua on 11-20-2024 Urea nitrogen/Creatinine [Mass ratio] 14.0 mg/mg 10-20 [facility] Basophil percentageOrdered B y: Jackson Joshua on 11-20-2024 Basophils/100 WBC (Bld) 0.5 % 0-1 [facility] Bilirubin, totalOrdered By: Jackson Joshua on 11-20-2024 Bilirubin [Mass/Vol] 0.45 mg/dL 0.00-1.30 [facility] CBC W/Diff, Automatedon Absolute Lymph 2.92 X10 3/uL Normal 0.83-4.51 [facility] Comment on above: Performed By: #### L 501.6710, L100.0100, L500.4050, L101.9900 #### [facility] [address] [place], [address] Absolute Neut 5.6 X10 3/uL Normal 2.0-7.7 [facility] Comment on above: Performed By: #### L 501.6710, L100.0100, L500.4050, L101.9900 #### [facility] [address] [place], [address] Basophils/100 WBC (Bld) 0.5 % Normal 0-1 [facility] Comment on above: Performed By: #### L 501.6710, L100.0100, L500.4050, L101.9900 #### [facility] [address] [place], [address] Eosinophils/100 WBC (Bld) 2.6 % Normal 0-5 [facility] Comment on above: Performed By: #### L 501.6710, L100.0100, L500.4050, L101.9900 #### [facility] [address] [place], [address] Erythrocyte distribution width (RBC) [Ratio] 12.0 % Normal 11.6-14.6 [facility] Comment on above: Performed By: #### L 501.6710, L100.0100, L500.4050, L101.9900 #### [facility] [address] [place], [address] Hematocrit (Bld) [Volume fraction] 42.3 % Normal 40-54 [facility] Comment on above: Performed By: #### L 501.6710, L100.0100, L500.4050, L101.9900 #### [facility] [address] [place], [address] Hemoglobin (Bld) [Mass/Vol] 15.0 g/dL Normal 13.0-16.5 [facility] Comment on above: Performed By: #### L 501.6710, L100.0100, L500.4050, L101.9900 #### [facility] [address] [place], [address] IG% 0.500 Normal 0.0-0.9 [facility] Comment on above: Result Comment: IG% - Immature Granulocytes (promyelocytes, myelocytes and metamyelocytes) > 1% indicates that a LEFT SHIFT is Present. Performed By: #### L 501.6710, L100.0100, L500.4050, L101.9900 #### [facility] [address] [place], [address] Lymphocytes/100 WBC (Bld) 30.6 % Normal 19-41 [facility] Comment on above: Performed By: #### L 501.6710, L100.0100, L500.4050, L101.9900 #### [facility] [address] [place], [address] MCH (RBC) [Entitic mass] 30.2 pg Normal 27.0-32.0 [facility] Comment on above: Performed By: #### L 501.6710, L100.0100, L500.4050, L101.9900 #### [facility] [address] [place], [address] MCHC (RBC) [Mass/Vol] 35.5 g/dL Normal 32-36 [facility] Comment on above: Performed By: #### L 501.6710, L100.0100, L500.4050, L101.9900 #### [facility] [address] [place], [address] MCV (RBC) [Entitic vol] 85.1 fL Normal 80-94 [facility] Comment on above: Performed By: #### L 501.6710, L100.0100, L500.4050, L101.9900 #### [facility] [address] [place], [address] Monocytes/100 WBC (Bld) 6.5 % Normal 0-10 [facility] Comment on above: Performed By: #### L 501.6710, L100.0100, L500.4050, L101.9900 #### [facility] [address] [place], [address] Neutrophils/100 WBC (Bld) 59.3 % Normal 47-70 [facility] Comment on above: Performed By: #### L 501.6710, L100.0100, L500.4050, L101.9900 #### [facility] [address] [place], [address] Nucleated RBC (Bld) [#/Vol] 0 10*3/uL Normal 0-5 [facility] Comment on above: Performed By: #### L 501.6710, L100.0100, L500.4050, L101.9900 #### [facility] [address] [place], [address] Platelet mean volume (Bld) [Entitic vol] 10.2 fL Normal 6.2-12.0 [facility] Comment on above: Performed By: #### L 501.6710, L100.0100, L500.4050, L101.9900 #### [facility] [address] [place], [address] Platelets (Bld) [#/Vol] 281 10*3/uL Normal 150-450 [facility] Comment on above: Performed By: #### L 501.6710, L100.0100, L500.4050, L101.9900 #### [facility] [address] [place], [address] RBC (Bld) [#/Vol] 4.97 10*6/uL Normal 4.6-6.2 [facility] Comment on above: Performed By: #### L 501.6710, L100.0100, L500.4050, L101.9900 #### [facility] [address] [place], [address] RDW SD 37.1 fl Normal 35.1-43.9 [facility] Comment on above: Performed By: #### L 501.6710, L100.0100, L500.4050, L101.9900 #### [facility] [address] [place], [address] WBC (Bld) [#/Vol] 9.5 10*3/uL Normal 4.4-11.0 [facility] Comment on above: Performed By: #### L 501.6710, L100.0100, L500.4050, L101.9900 #### [facility] [address] [place], [address] CRPon 11-20-2024 C-REACTIVE PROT < 3.00 Normal 0.0-3.0 [facility] Comment on above: Performed By: #### L 501.6710, L100.0100, L500.4050, L101.9900 #### [facility] [address] [place], [address] CRP [Mass/Vol]Ordered By: Sudhir Joshua on 11-20-2024 C-Reactive Protein Extended Range < 3.00 mg/L 0.0-3.0 [facility] Carbon dioxide, total [Moles /volume] in Central venous bloodOrdered By: Jackson Joshua on 11-20-2024 CO2 [Moles/Vol] 24.2 mmol/L 21.0-32.0 [facility] Chloride assayOrdered By: Sudhir Joshua on 11-20-2024 Chloride [Moles/Vol] 101 mmol/L 98-108 [facility] Eosinophil percentageOrdered By: Jackson Joshua on 11-20-2024 Eosinophils/100 WBC (Bld) 2.6 % 0-5 [facility] Erythrocyte Sed Rateon 11-20 SED RATE < 1 Normal 0-20 [facility] Comment on above: Performed By: #### L 501.6710, L100.0100, L500.4050, L101.9900 #### [facility] [address] [place], [address] Erythrocyte distribution wid th ratioOrdered By: Jackson Joshua on 11-20-2024 Erythrocyte distribution width (RBC) [Ratio] 12.0 % 11.6-14.6 [facility] Erythrocyte distribution wid th standard deviationOrdered By: Jackson Joshua on 11-20-2024 Erythrocyte distribution width (RBC) [Entitic vol] 37.1 fL 35.1-43.9 [facility] Erythrocyte distribution width (RBC) [Ratio] 37.1 fl 35.1-43.9 [facility] Erythrocyte sedimentation ra teOrdered By: Jackson Joshua on 11-20-2024 ESR (Bld) [Velocity] mm/h 0-20 [facility] GFR/1.73 sq M.predicted mary g non-blacks MDRD (S/P/Bld) [Vol rate/Area]Ordered By: Jackson Joshua on 11-20-2024 Estimated GFR (MDRD) Non-Af Amer 109 >60 [facility] Comment on above: mL/min/1.73m2 CKD-EP I Creatinine Equation (2020) Glomerular filtration rate ( GFR) estimation/1.73 sq m using serum, plasma, or whole bOrdered By: Jackson Joshua on 11-20-2024 GFR/1.73 sq M.predicted among non-blacks MDRD (S/P/Bld) [Vol rate/Area] 109 mL/min/{1.73_m2} >60 [facility] Comment on above: mL/min/1.73m2 CKD-EP I Creatinine Equation (2020) Hematocrit Auto (Bld) [Volum e fraction]Ordered By: Jackson Joshua on 11-20-2024 Hematocrit (Bld) [Volume fraction] 42.3 % 40-54 [facility] Hemoglobin measurementOrdere d By: Jackson Joshua on 11-20-2024 Hemoglobin (Bld) [Mass/Vol] 15.0 g/dL 13.0-16.5 [facility] Immature granulocytes/100 WB C Auto (Bld)Ordered By: Jackson Joshua on 11-20-2024 Immature granulocytes/100 WBC (Bld) 0.500 % 0.0-0.9 [facility] Comment on above: IG% - Immature Granu locytes (promyelocytes, myelocytes and metamyelocytes) > 1% indicates that a LEFT SHIFT is Present. Laboratory - Chemistry and C hemistry - challengeOrdered By: Jackson Joshua on 11-20-2024 AST [Catalytic activity/Vol] 27 U/L <38 [facility] Lymphocytes Auto (Unsp spec) [#/Vol]Ordered By: Jackson Joshua on 11-20-2024 Lymphocytes (Bld) [#/Vol] 2.92 10*3/uL 0.83-4.5 1 [facility] Lymphocytes/100 WBC Auto (Un sp spec)Ordered By: Jackson Joshua on 11-20-2024 Lymphocytes/100 WBC (Bld) 30.6 % 19-41 [facility] MCV (mean corpuscular volume ) determinationOrdered By: Jackson Joshua on 11-20-2024 MCV (RBC) [Entitic vol] 85.1 fL 80-94 [facility] Mean corpuscular hemoglobin (MCH) determinationOrdered By: Jackson Joshua on 11-20-2024 MCH (RBC) [Entitic mass] 30.2 pg 27.0-32.0 [facility] Mean corpuscular hemoglobin concentration (MCHC) determinationOrdered By: Jackson Joshua on 11-20-2024 MCHC (RBC) [Mass/Vol] 35.5 g/dL 32-36 [facility] Mean platelet volume determi nationOrdered By: Jackson Joshua on 11-20-2024 Platelet mean volume (Bld) [Entitic vol] 10.2 fL 6.2-12.0 [facility] Monocyte percentageOrdered B y: Jackson Joshua on 11-20-2024 Monocytes/100 WBC (Bld) 6.5 % 0-10 [facility] Neutrophil percentageOrdered By: Jackson Joshua on 11-20-2024 Neutrophils/100 WBC (Bld) 59.3 % 47-70 [facility] Nucleated red blood cell per centageOrdered By: Jackson Joshua on 11-20-2024 Nucleated RBC/100 WBC (Bld) [Ratio] 0 % 0-5 [facility] Platelet countOrdered By: Sudhir Joshua on 11-20-2024 Platelets (Bld) [#/Vol] 281 10*3/uL 150-450 [facility] Potassium (Unsp spec) [Mass/ Vol]Ordered By: Jackson Joshua on 11-20-2024 Potassium [Moles/Vol] 4.0 mmol/L 3.3-5.1 [facility] Potassium measurement (mass/ volume)Ordered By: Jackson Joshua on 11-20-2024 Potassium (Unsp spec) [Mass/Vol] 4.0 mmol/L 3.3-5.1 [facility] RBC Auto (Bld) [#/Vol]Ordere d By: Jackson Joshua on 11-20-2024 RBC (Bld) [#/Vol] 4.97 10*6/uL 4.6-6.2 [facility] Serum creatinine measurement (mass/volume)Ordered By: Jackson Joshua on 11-20-2024 Creatinine [Mass/Vol] 0.91 mg/dL 0.70-1.20 [facility] Serum globulin measurementOr dered By: Jackson Joshua on 11-20-2024 Globulin (S) [Mass/Vol] 2.5 g/dL 2.2-4.2 [facility] Serum glucose measurement (m ass/volume)Ordered By: Jackson Joshua on 11-20-2024 Glucose [Mass/Vol] 86 mg/dL 70-99 [facility] Serum or plasma C reactive p rotein measurement (mass/volume)Ordered By: Jackson Joshua 11-20-2024 CRP [Mass/Vol] mg/L 0.0-3.0 [facility] Serum or plasma alanine ball otransferase (ALT) measurementOrdered By: Jackson Joshua 11-20-2024 ALT [Catalytic activity/Vol] 41 U/L <47 [facility] Serum or plasma albumin [place] urement (mass/volume)Ordered By: Jackson Joshua 11-20-2024 Albumin [Mass/Vol] 4.7 g/dL 3.5-5.0 [facility] Serum or plasma albumin/glob ulin mass ratioOrdered By: Jackson Joshua 11-20-2024 Albumin/Globulin [Mass ratio] 1.9 {ratio} 0.9-2.4 [facility] Serum or plasma alkaline crist[place] sphatase measurementOrdered By: Jackson Joshua 11-20-2024 ALP [Catalytic activity/Vol] 71 U/L 40-129 [facility] Serum or plasma calcium t[place] urement (mass/volume)Ordered By: Jackson Joshua 11-20-2024 Calcium [Mass/Vol] 9.6 mg/dL 7.6-11.0 [facility] Serum or plasma urea nitroge n measurement (mass/volume)Ordered By: Jackson Joshua 11-20-2024 Urea nitrogen [Mass/Vol] 13 mg/dL 4-19 [facility] Sodium levelOrdered By: Mauricio danielle Tres on 11-20-2024 Sodium [Moles/Vol] 142 mmol/L 133-145 [facility] Total proteinOrdered By: Mikey faith Tres on 11-20-2024 Protein [Mass/Vol] 7.2 g/dL 5.9-8.4 [facility] White blood cell (WBC) count Ordered By: Jackson Tres on 11-20-2024 WBC (Bld) [#/Vol] 9.5 10*3/uL 4.4-11.0 [facility] Vitamin B12on 05-23-2024 Cobalamin (Vitamin B12) [Mass/Vol] 533 pg/mL Normal 211-911 [facility] Comment on above: Performed By: #### L 501.6710, L100.0100, L500.4050, L101.9900 #### [facility] [address] [place], [address] Vitamin D,25 Hydroxyon 05-23 Vitamin D 25-OH 31.9 ng/mL Normal [facility] Comment on above: Result Comment: Ynes min D 25(OH) Status Range Deficiency <20 ng/mL (50nmol/L) Insufficiency 20 - 30 ng/mL (50 - 75 nmol/L) Sufficiency 30 - 100 ng/mL (75 - 250 nmol/L) Toxicity >100 ng/mL (>250 nmol/L) Performed By: #### L 501.6710, L100.0100, L500.4050, L101.9900 #### [facility] [address] [place], [address] CBC W/Diff, Automatedon - Absolute Lymph 2.14 X10 3/uL Normal 0.83-4.51 [facility] Comment on above: Performed By: #### L 503.0105, L506.0250, L501.9520, L506.1000, L100.0100, L500.4100, L500.4050 #### [facility] [address] [place], [address] Absolute Neut 4.5 X10 3/uL Normal 2.0-7.7 [facility] Comment on above: Performed By: #### L 503.0105, L506.0250, L501.9520, L506.1000, L100.0100, L500.4100, L500.4050 #### [facility] [address] [place], [address] Basophils/100 WBC (Bld) 0.6 % Normal 0-1 [facility] Comment on above: Performed By: #### L 503.0105, L506.0250, L501.9520, L506.1000, L100.0100, L500.4100, L500.4050 #### [facility] [address] [place], [address] Eosinophils/100 WBC (Bld) 3.1 % Normal 0-5 [facility] Comment on above: Performed By: #### L 503.0105, L506.0250, L501.9520, L506.1000, L100.0100, L500.4100, L500.4050 #### [facility] [address] [place], [address] Erythrocyte distribution width (RBC) [Ratio] 12.2 % Normal 11.6-14.6 [facility] Comment on above: Performed By: #### L 503.0105, L506.0250, L501.9520, L506.1000, L100.0100, L500.4100, L500.4050 #### [facility] [address] [place], [address] Hematocrit (Bld) [Volume fraction] 44.7 % Normal 40-54 [facility] Comment on above: Performed By: #### L 503.0105, L506.0250, L501.9520, L506.1000, L100.0100, L500.4100, L500.4050 #### [facility] [address] [place], [address] Hemoglobin (Bld) [Mass/Vol] 15.6 g/dL Normal 13.0-16.5 [facility] Comment on above: Performed By: #### L 503.0105, L506.0250, L501.9520, L506.1000, L100.0100, L500.4100, L500.4050 #### [facility] [address] [place], [address] IG% 0.300 Normal 0.0-0.9 [facility] Comment on above: Result Comment: IG% - Immature Granulocytes (promyelocytes, myelocytes and metamyelocytes) > 1% indicates that a LEFT SHIFT is Present. Performed By: #### L 503.0105, L506.0250, L501.9520, L506.1000, L100.0100, L500.4100, L500.4050 #### [facility] [address] [place], [address] Lymphocytes/100 WBC (Bld) 27.6 % Normal 19-41 [facility] Comment on above: Performed By: #### L 503.0105, L506.0250, L501.9520, L506.1000, L100.0100, L500.4100, L500.4050 #### [facility] [address] [place], [address] MCH (RBC) [Entitic mass] 29.8 pg Normal 27.0-32.0 [facility] Comment on above: Performed By: #### L 503.0105, L506.0250, L501.9520, L506.1000, L100.0100, L500.4100, L500.4050 #### [facility] [address] [place], [address] MCHC (RBC) [Mass/Vol] 34.9 g/dL Normal 32-36 [facility] Comment on above: Performed By: #### L 503.0105, L506.0250, L501.9520, L506.1000, L100.0100, L500.4100, L500.4050 #### [facility] [address] [place], [address] MCV (RBC) [Entitic vol] 85.5 fL Normal 80-94 [facility] Comment on above: Performed By: #### L 503.0105, L506.0250, L501.9520, L506.1000, L100.0100, L500.4100, L500.4050 #### [facility] [address] [place], [address] Monocytes/100 WBC (Bld) 10.3 % High 0-10 [facility] Comment on above: Performed By: #### L 503.0105, L506.0250, L501.9520, L506.1000, L100.0100, L500.4100, L500.4050 #### [facility] [address] [place], [address] Neutrophils/100 WBC (Bld) 58.1 % Normal 47-70 [facility] Comment on above: Performed By: #### L 503.0105, L506.0250, L501.9520, L506.1000, L100.0100, L500.4100, L500.4050 #### [facility] [address] [place], [address] Nucleated RBC (Bld) [#/Vol] 0 10*3/uL Normal 0-5 [facility] Comment on above: Performed By: #### L 503.0105, L506.0250, L501.9520, L506.1000, L100.0100, L500.4100, L500.4050 #### [facility] [address] [place], [address] Platelet mean volume (Bld) [Entitic vol] 10.0 fL Normal 6.2-12.0 [facility] Comment on above: Performed By: #### L 503.0105, L506.0250, L501.9520, L506.1000, L100.0100, L500.4100, L500.4050 #### [facility] [address] [place], [address] Platelets (Bld) [#/Vol] 246 10*3/uL Normal 150-450 [facility] Comment on above: Performed By: #### L 503.0105, L506.0250, L501.9520, L506.1000, L100.0100, L500.4100, L500.4050 #### [facility] [address] [place], [address] RBC (Bld) [#/Vol] 5.23 10*6/uL Normal 4.6-6.2 [facility] Comment on above: Performed By: #### L 503.0105, L506.0250, L501.9520, L506.1000, L100.0100, L500.4100, L500.4050 #### [facility] [address] [place], [address] RDW SD 37.7 fl Normal 35.1-43.9 [facility] Comment on above: Performed By: #### L 503.0105, L506.0250, L501.9520, L506.1000, L100.0100, L500.4100, L500.4050 #### [facility] [address] [place], [address] WBC (Bld) [#/Vol] 7.7 10*3/uL Normal 4.4-11.0 [facility] Comment on above: Performed By: #### L 503.0105, L506.0250, L501.9520, L506.1000, L100.0100, L500.4100, L500.4050 #### [facility] [address] [place], [address] Comprehensive Metabolic Prof ilon 05-20-2024 Albumin [Mass/Vol] 4.1 g/dL Normal 3.2-5.0 [facility] Comment on above: Order Comment: LIPID N Performed By: #### L 503.0105, L506.0250, L501.9520, L506.1000, L100.0100, L500.4100, L500.4050 #### [facility] [address] [place], [address] Albumin/Globulin [Mass ratio] 1.3 {ratio} Normal 0.9-2.4 [facility] Comment on above: Order Comment: LIPID N Performed By: #### L 503.0105, L506.0250, L501.9520, L506.1000, L100.0100, L500.4100, L500.4050 #### [facility] [address] [place], [address] ALK P 74 U/L Normal 45-117 [facility] Comment on above: Order Comment: LIPID N Performed By: #### L 503.0105, L506.0250, L501.9520, L506.1000, L100.0100, L500.4100, L500.4050 #### [facility] [address] [place], [address] ALT [Catalytic activity/Vol] 38 U/L Normal 16-61 [facility] Comment on above: Order Comment: LIPID N Performed By: #### L 503.0105, L506.0250, L501.9520, L506.1000, L100.0100, L500.4100, L500.4050 #### [facility] [address] [place], [address] AST [Catalytic activity/Vol] 17 U/L Normal 15-37 [facility] Comment on above: Order Comment: LIPID N Performed By: #### L 503.0105, L506.0250, L501.9520, L506.1000, L100.0100, L500.4100, L500.4050 #### [facility] [address] [place], [address] Bilirubin [Mass/Vol] 0.60 mg/dL Normal 0.20-1.00 [facility] Comment on above: Order Comment: LIPID N Result Comment: For patients on eltrombopag therapy, use of Dimension [place] TBIL is not recommended. Performed By: #### L 503.0105, L506.0250, L501.9520, L506.1000, L100.0100, L500.4100, L500.4050 #### [facility] [address] [place], [address] BUN/CRE 17.6 RATIO Normal 10-20 [facility] Comment on above: Order Comment: LIPID N Performed By: #### L 503.0105, L506.0250, L501.9520, L506.1000, L100.0100, L500.4100, L500.4050 #### [facility] [address] [place], [address] CA,Total 9.5 mg/dL Normal 8.5-10.1 [facility] Comment on above: Order Comment: LIPID N Performed By: #### L 503.0105, L506.0250, L501.9520, L506.1000, L100.0100, L500.4100, L500.4050 #### [facility] [address] [place], [address] Chloride [Moles/Vol] 108 mmol/L High 98-107 [facility] Comment on above: Order Comment: LIPID N Performed By: #### L 503.0105, L506.0250, L501.9520, L506.1000, L100.0100, L500.4100, L500.4050 #### [facility] [address] [place], [place], [phone] ([phone]) CO2 [Moles/Vol] 32.0 mmol/L Normal 21.0-32.0 [facility] Comment on above: Order Comment: LIPID N Performed By: #### L 503.0105, L506.0250, L501.9520, L506.1000, L100.0100, L500.4100, L500.4050 #### [facility] [address] [place], [place], [phone] (396) Creatinine [Mass/Vol] 1.02 mg/dL Normal 0.70-1.30 [facility] Comment on above: Order Comment: LIPID N Result Comment: The validity of the calculated GFR GFRAA in patients over 70 years has not been determined. Clinical correlation is essential. Performed By: #### L 503.0105, L506.0250, L501.9520, L506.1000, L100.0100, L500.4100, L500.4050 #### [facility] [address] [place], [place], [id number] EST GFR - AA 104 mL/min Normal >60 [facility] Comment on above: Order Comment: LIPID N Result Comment: Afri can Bangladeshi GFR Calc Performed By: #### L 503.0105, L506.0250, L501.9520, L506.1000, L100.0100, L500.4100, L500.4050 #### [facility] [address] [place], [address] GAP 1 Low 5-15 [facility] Comment on above: Order Comment: LIPID N Performed By: #### L 503.0105, L506.0250, L501.9520, L506.1000, L100.0100, L500.4100, L500.4050 #### [facility] [address] [place], [address] GFR/1.73 sq M.predicted among non-blacks MDRD (S/P/Bld) [Vol rate/Area] 86 mL/min/{1.73_m2} Normal >60 [facility] Comment on above: Order Comment: LIPID N Result Comment: Non- GFR Calc Performed By: #### L 503.0105, L506.0250, L501.9520, L506.1000, L100.0100, L500.4100, L500.4050 #### [facility] [address] [place], [address] Globulin (S) [Mass/Vol] 3.2 g/dL Normal 2.2-4.2 [facility] Comment on above: Order Comment: LIPID N Performed By: #### L 503.0105, L506.0250, L501.9520, L506.1000, L100.0100, L500.4100, L500.4050 #### [facility] [address] [place], [address] Glucose [Mass/Vol] 106 mg/dL Normal 74-106 [facility] Comment on above: Order Comment: LIPID N Result Comment: Fast ing Glucose result from 100 to 125 mg/dL suggests IMPAIRED HOMEOSTASIS per A.D.A. criteria. Performed By: #### L 503.0105, L506.0250, L501.9520, L506.1000, L100.0100, L500.4100, L500.4050 #### [facility] [address] [place], [address] Potassium [Moles/Vol] 4.2 mmol/L Normal 3.5-5.1 [facility] Comment on above: Order Comment: LIPID N Performed By: #### L 503.0105, L506.0250, L501.9520, L506.1000, L100.0100, L500.4100, L500.4050 #### [facility] [address] [place], [address] Sodium [Moles/Vol] 141 mmol/L Normal 136-145 [facility] Comment on above: Order Comment: LIPID N Performed By: #### L 503.0105, L506.0250, L501.9520, L506.1000, L100.0100, L500.4100, L500.4050 #### [facility] [address] [place], [address] T PROT 7.3 g/dL Normal 6.4-8.2 [facility] Comment on above: Order Comment: LIPID N Performed By: #### L 503.0105, L506.0250, L501.9520, L506.1000, L100.0100, L500.4100, L500.4050 #### [facility] [address] [place], [address] Urea nitrogen [Mass/Vol] 18 mg/dL Normal 7-18 [facility] Comment on above: Order Comment: LIPID N Performed By: #### L 503.0105, L506.0250, L501.9520, L506.1000, L100.0100, L500.4100, L500.4050 #### [facility] [address] [place], [address] Folates, (Folic Acid)on 04-22 FOLATES 15.40 ng/mL Normal 3.1-55.4 [facility] Comment on above: Order Comment: LIPID N Performed By: #### L 501.6710, L100.0100, L500.4050, L101.9900 #### [facility] [address] [place], [address] Lipid Profileon 05-20-2024 Cholesterol [Mass/Vol] 168 mg/dL Normal 200 [facility] Comment on above: Order Comment: LIPID N Result Comment: <200 mg/dL Desirable 200-240 mg/dL Borderline >240 mg/dL High Risk Performed By: #### L 501.6710, L100.0100, L500.4050, L101.9900 #### [facility] [address] [place], [address] Cholesterol in HDL [Mass/Vol] 45 mg/dL Normal [facility] Comment on above: Order Comment: LIPID N Result Comment: The drugs N-Acetylcysteine and Metamizole may falsely depress this assay. Reference Range HDL <40 mg/dL Low HDL Cholesterol HDL >or= 60 mg/dL High HDL Cholesterol Performed By: #### L 501.6710, L100.0100, L500.4050, L101.9900 #### [facility] [address] [place], [address] Cholesterol in LDL [Mass/Vol] 104 mg/dL Normal 0-130 [facility] Comment on above: Order Comment: LIPID N Performed By: #### L 501.6710, L100.0100, L500.4050, L101.9900 #### [facility] [address] [place], [address] Cholesterol in VLDL [Mass/Vol] 19 mg/dL Normal 5-40 [facility] Comment on above: Order Comment: LIPID N Performed By: #### L 501.6710, L100.0100, L500.4050, L101.9900 #### [facility] [address] [place], [address] Triglyceride [Mass/Vol] 96 mg/dL Normal [facility] Comment on above: Order Comment: LIPID N Result Comment: The drugs N-Acetylcysteine and Metamizole may falsely depress this assay. Serum Triglycerides Reference Interval Normal <150 mg/dL Borderline high 150 - 199 mg/dL High 200 - 499 mg/dL Very High > or = 500 mg/dL Performed By: #### L 501.6710, L100.0100, L500.4050, L101.9900 #### [facility] [address] [place], [place], [id number] Thyroid Stim Hormone (TSH)on 05-20-2024 TSH 1.760 uIU/mL Normal 0.358-3.740 [facility] Comment on above: Order Comment: LIPID N Performed By: #### L 501.6710, L100.0100, L500.4050, L101.9900 #### [facility] [address] [place], [place], [id number] Absolute lymphocyte countOrd ered By: Jackson Joshua on 12-25-2023 Lymphocytes Auto (Unsp spec) [#/Vol] 2.51 10*3/uL 0.83-4.51 [facility] Automated lymphocyte count a s percentage of total leukocytesOrdered By: Jackson Joshua on 12-25-2023 Lymphocytes/100 WBC Auto (Unsp spec) 30.2 % 19-41 [facility] Basophil percentageOrdered B y: Jackson Joshua on 12-25-2023 Basophils/100 WBC (Bld) 0.7 % 0-1 [facility] Bilirubin [Mass/Vol] 0.60 mg/dL 0.20-1.00 [facility] Comment on above: For patients on eltr ombopag therapy, use of Dimension [place] TBIL is not recommended. Chloride [Moles/Vol] 103 mmol/L 98-107 [facility] Cholesterol [Mass/Vol] 256 mg/dL <200 [facility] Comment on above: <200 mg/dL Desirable 200-240 mg/dL Borderline >240 mg/dL High Risk Eosinophils/100 WBC (Bld) 6.5 % 0-5 [facility] Glucose [Mass/Vol] 100 mg/dL 74-106 [facility] Comment on above: Fasting Glucose resu lt from 100 to 125 mg/dL suggests IMPAIRED HOMEOSTASIS per A.D.A. criteria. Hemoglobin (Bld) [Mass/Vol] 15.8 g/dL 13.0-16.5 [facility] Monocytes/100 WBC (Bld) 7.6 % 0-10 [facility] Neutrophils (Bld) [#/Vol] 4.5 10*3/uL 2.0-7.7 [facility] Neutrophils/100 WBC (Bld) 54.5 % 47-70 [facility] Potassium [Moles/Vol] 3.8 mmol/L 3.5-5.1 [facility] Protein [Mass/Vol] 7.6 g/dL 6.4-8.2 [facility] Sodium [Moles/Vol] 138 mmol/L 136-145 [facility] Triglyceride [Mass/Vol] 235 mg/dL <199 [facility] Comment on above: The drugs N-Acetylcy steine and Metamizole may falsely depress this assay.Serum Triglycerides Reference Interval Normal <150 mg/dL Borderline high 150 - 199 mg/dL High 200 - 499 mg/dL Very High > or = 500 mg/dL WBC (Bld) [#/Vol] 8.3 10*3/uL 4.4-11.0 [facility] Determination of erythrocyte mean corpuscular volume (MCV)Ordered By: Jackson Joshua on 12-25-2023 MCV (RBC) [Entitic vol] 84.6 fL 80-94 [facility] Erythrocyte distribution wid th ratioOrdered By: Jackson Joshua on 12-25-2023 Erythrocyte distribution width (RBC) [Ratio] 12.6 % 11.6-14.6 [facility] Erythrocyte distribution wid th standard deviationOrdered By: Jackson Joshua on 12-25-2023 Erythrocyte distribution width (RBC) [Entitic vol] 38.5 fL 35.1-43.9 [facility] Hematocrit Auto (Bld) [Volum e fraction]Ordered By: Jackson Joshua 12-25-2023 Hematocrit (Bld) [Volume fraction] 45.7 % 40-54 [facility] Immature granulocytes/100 WB C Auto (Bld)Ordered By: Jackson Joshua on 12-25-2023 Immature granulocytes/100 WBC (Bld) 0.500 % 0.0-0.9 [facility] Comment on above: IG% - Immature Granu locytes (promyelocytes, myelocytes and metamyelocytes) > 1% indicates that a LEFT SHIFT is Present. Iron measurement (mass/mass) Ordered By: Jackson Joshua on 12-25-2023 Iron (Unsp spec) [Mass/Mass] 104 ug/dL 65-175 [facility] - Chemistry and C hemistry - challengeOrdered By: Jackson Joshua on 12-25-2023 Albumin/Globulin [Mass ratio] 1.2 {ratio} 0.9-2.4 [facility] ALP [Catalytic activity/Vol] 71 U/L 45-117 [facility] ALT [Catalytic activity/Vol] 36 U/L 16-61 [facility] Cholesterol in HDL [Mass/Vol] 43 mg/dL >40 [facility] Comment on above: The drugs N-Acetylcy steine and Metamizole may falsely depress this assay. Reference Range HDL <40 mg/dL Low HDL Cholesterol HDL >or= 60 mg/dL High HDL Cholesterol Cholesterol in LDL [Mass/Vol] 166 mg/dL 0-130 [facility] CO2 [Moles/Vol] 31.0 mmol/L 21.0-32.0 [facility] Cobalamin (Vitamin B12) [Mass/Vol] 559 pg/mL 211-911 [facility] Ferritin [Mass/Vol] 28 ng/mL 26-388 [facility] Globulin (S) [Mass/Vol] 3.4 g/dL 2.2-4.2 [facility] Magnesium [Mass/Vol] 2.0 mg/dL 1.6-2.6 [facility] Urea nitrogen/Creatinine [Mass ratio] 16.0 mg/mg 10-20 [facility] - Hematology and Cell countsOrdered By: Jackson Joshua on 12-25-2023 MCH (RBC) [Entitic mass] 29.3 pg 27.0-32.0 [facility] MCHC (RBC) [Mass/Vol] 34.6 g/dL 32-36 [facility] Nucleated RBC/100 WBC (Bld) [Ratio] 0 % 0-5 [facility] Platelet mean volume (Bld) [Entitic vol] 9.9 fL 6.2-12.0 [facility] Platelets (Bld) [#/Vol] 260 10*3/uL 150-450 [facility] No Panel InformationOrdered By: Jackson Joshua on 12-25-2023 Estimated GFR (MDRD) Amer 100 mL/min >60 [facility] Comment on above: GFR Calc Estimated GFR (MDRD) Non-Af Amer 83 mL/min >60 [facility] Comment on above: Non- GFR Calc Folate 13.80 ng/mL 3.1-55.4 [facility] Total Iron Binding Capacity 407 ug/dL 250-450 [facility] Vitamin D 25-Hydroxy 26.7 ng/mL [facility] Comment on above: Vitamin D 25(OH) Sta tus Range Deficiency <20 ng/mL (50nmol/L) Insufficiency 20 - 30 ng/mL (50 - 75 nmol/L) Sufficiency 30 - 100 ng/mL (75 - 250 nmol/L) Toxicity >100 ng/mL (>250 nmol/L) VLDL Cholesterol 47 mg/dL 5-40 [facility] RBC Auto (Bld) [#/Vol]Ordere d By: Jackson Joshua on 12-25-2023 RBC (Bld) [#/Vol] 5.40 10*6/uL 4.6-6.2 [facility] Serum or plasma calcium [place] urement (mass/volume)Ordered By: Jackson Joshua on 12-25-2023 Calcium [Mass/Vol] 9.3 mg/dL 8.5-10.1 [facility] Serum or plasma creatinine m easurement (mass/volume)Ordered By: Jackson Joshua on 12-25-2023 Creatinine [Mass/Vol] 1.06 mg/dL 0.70-1.30 [facility] Comment on above: The validity of the calculated GFR & GFRAA in patients over 70 years has not been determined. Clinical correlation is essential. Serum or plasma iron saturat ion measurement (mass fraction)Ordered By: Jackson Joshua on 12-25-2023 Iron saturation [Mass fraction] 25.6 % 15.0-55.0 [facility] Serum or plasma thyroid stim ulating hormone (TSH) measurement (units/volume)Ordered By: Jackson Joshua on 12-25-2023 TSH Qn 2.14 uIU/mL 0.358-3.74 [facility] Serum or plasma urea nitroge n measurement (mass/volume)Ordered By: Jackson Joshua on 12-25-2023 Urea nitrogen [Mass/Vol] 17 mg/dL 7-18 [facility] Thin prep Papanicolaou smear with manual screeningOrdered By: Jackson Joshua 12-25-2023 Thin prep Papanicolaou smear with manual screening 4.2 g/dL 3.2-5.0 [facility] Thin prep Papanicolaou smear with manual screening 15 U/L 15-37 [facility] Thin prep Papanicolaou smear with manual screening 4 5-15 [facility] Encounters Encounter Date Encounter Type Care Provider Facility Start: 04-02-2025 End: 04-02-2025 ambulatory Magaly Price CONTINUITY COORDINATOR-C Work Phone: -Laboratory Start: 04-02-2025 End: 04-02-[address] Macey Rey MD -Laboratory Work Phone: Start: 04-02-2025 End: 04-02-2025 ambulatory Magaly Price Facility:[facility] Start: 02-03-2025 End: 02-03-2025 ambulatory Magaly Price CONTINUITY COORDINATOR-C Work Phone: [facility] Work Phone: Start: 02-03-2025 End: 02-03-2025 Patient encounter procedure Magaly DUFFYC -Laboratory Work Phone: Start: 02-03-2025 End: 02-03-2025 ambulatory Magaly Price Facility:[facility] Start: 11-20-2024 End: 11-20-2024 ambulatory Magaly Price CONTINUITY COORDINATOR-C Work Phone: [facility] Work Phone: Start: 11-20-2024 End: 11-20-[address] Jackson Timmons MD -Laboratory Work Phone: Start: 11-20-2024 End: 11-20-2024 ambulatory Jackson Timmons Facility:[facility] Start: 05-20-2024 End: 05-20-2024 ambulatory Magaly Price Facility:[facility] Start: 12-25-2023 End: 12-25-2023 ambulatory [facility] Work Phone: Start: 12-25-2023 End: 12-25-2023 Patient encounter procedure [facility]-Laboratory Work Phone: Procedures Date Procedure Procedure Detail Performing Clinician Start: 02-03-2025 Prostate specific an tigen measurement Magaly ADAME Work Phone: Comment on above: Cristina ECLIA methodol ogy.According to the [employer] [employer], Serum PSAshould decrease and remain at undetectable levels afterradical prostatectomy. The AUA defines biochemicalrecurrence as an initial PSA value 0.2 ng/mL or greaterfollowed by a subsequent confirmatory PSA value 0.2 ng/mLor greater. Values obtained with different assay methods orkits cannot be used interchangeably. Results cannot beinterpreted as absolute evidence of the presence or absenceof malignant disease. Plan of Treatment Date Care Activity Detail Author Amphetamines [Presen ce] in Urine by Confirmatory method [facility] Benzoylecgonine [Pre sence] in Urine by Confirmatory method [facility] Cocaine measurement [facility] Cocaine measurement, urine [facility] Ethanol [Mass/volume] in Urine [facility] Urine amphetamine measurement [facility] Payers Date Payer Category Payer Self-pay [id number] 2024 Unknown [id number] Unknown [facility] *DO NOT USE* [id number] Unknown [id number] .. [id number] Unknown [id number] [id number] Unknown [id number] [id number] [id number] Unknown [id number] [id number] [id number] Unknown [id number] Social History Date Type Detail Facility Start: 04-04-2021 Tobacco smoking stat us NHIS Unknown if ever smoked [facility] Start: 1985 Sex Assigned At Male [facility] Start: 04-04-2021 Tobacco smoking stat us [place] Ex-smoker (finding) [facility] Start: 11-30-2024 Sex Male (finding) [facility] Evaluation note Note Date & Type Note Facility Evaluation note No assessment information availa ble [facility] Work Phone: Reason for referral (narrative) Note Date & Type Note Facility Reason for referral (narrative) No reason for referral information available [facility] Work Phone: Family History No Family History Records Found Relationship Condition Age at Onset Recorded Date/T dotty Not Specified Arthritis Unknown grandfather Malignant neoplasm of colon Unknown Malignant neoplasm Unknown mother Depression Unknown Hypertension Unknown Cerebrovascular accident (CVA) Unknown father Cardiac disease Unknown Chief Complaint and Reason for Visit Chief Complaint Admit Date NEEDS ORDERS April 02, 2025 3:30 pm Summary Purpose Advance Directives No Advanced Directives [...] 2024 End: November 20, 2024 Dr. Jackson Tmimons MD Attending Provider Active Start: November 20, [...] February 03, 2025 End: February 03, 2025 Team Status: Active Member Role/Relationship Status Dates DEEP Quinones Primary Care Provider Active Team Status: Inactive Member Role/Relationship Status Dates DEEP Quinones Primary Care Provider Active Start: February 03, 2025 End: February 03, 2025 DEEP Quinones Attending Provider Active Start: February 03, 2025 End: February 03, 2025 DEEP Quinones Referring Provider Active Start: February 03, 2025 End: February 03, 2025 Team Status: Inactive Member Role/Relationship Status Dates DEEP Quinones Primary Care Provider Active Start: April 02, 2025 End: April 02, 2025 Dr. Macey Rey MD Attending Provider Active Start: April 02, 2025 End: April 02, 2025 Dr. Macey Rey MD Referring Provider Active Start: April 02, 2025 End: April 02, 2025 Goals (unrecognized section and content) Goals may be documented in a n alternate sectionGoals may be documented in an alternate sectionGoals may be documented in an alternate sectionGoals may be documented in an alternate section (unrecognized sect ion and content) No Status Records Found INFORMATION SOURCE (unrecogn ized section and content) DATE CREATED AUTHOR 04/09/2025 [facility] FOR RECORDS PERTAINING TO PATIENTS WHO [...] BE BASED ON THE PRIMARY CLINICAL RECORDS. [employer] provides no warranty or guarantee of the accuracy or completeness of information in this document.
[2025-05-26 09:34] LABS: Hematocrit 42.5 % (40-54); Hemoglobin 14.9 g/dL (13.0-16.5); Mean Corp Hgb Conc 35.1 g/dL (32-36); Mean Corpuscular Volume 86.2 fL (80-94); Mean Platelet Vol. 10.0 fl (6.2-12.0); Platelet Count 254 K/mm3 (150-450); RBC Distribution Width CV 11.9 % (11.6-14.6); RBC Distribution Width SD 37.2 fl (35.1-43.9); Red Blood Count 4.93 M/mm3 (4.6-6.2); White Blood Count 7.4 K/mm3 (4.4-11.0)
[2025-05-26 09:35] LABS: AST(SGOT) 23 U/L (<=37); Alanine Aminotransfer ALT/SGPT 28 U/L (<=46); Albumin, Serum 4.6 g/dL (3.5-5.0); Alkaline Phosphatase 64 U/L (40-129); Anion Gap 9 (5-15); BUN 17 mg/dL (4-19); BUN/Creat Ratio 18.9 RATIO (10-20); Calcium,Total 9.3 mg/dL (7.6-11.0); Carbon Dioxide 28.7 mmol/L (21.0-32.0); Chloride 103 mmol/L (98-108); Globulin 2.3 g/dL (2.2-4.2); Glucose 112 mg/dL (70-99); Potassium 4.6 mmol/L (3.3-5.1)
[2025-05-26 09:37] LABS: CRP < 3.00 mg/L (0.0-3.0)
== END | disposition home or self-care (01) ==
LOC: LAB 08:49
PROVIDERS: PCP Nurse Practitioner Family; Referring Provider Internal Medicine; Visit Provider Internal Medicine
DX: K92.1 Melena (principal); R14.0 Abdominal distension (gaseous); R19.4 Change in bowel habit; K63.89 Other specified diseases of intestine
CPT/HCPCS: 36415; 80053; 85027; 85652; 86140

== ENCOUNTER → 2025-05-28 | Outpatient (CLI) | payer BC, SELFPAY ==
[2025-06-01 14:09] LABS: Calprotectin, Stool 130 ug/g (0-120)
== END | disposition home or self-care (01) ==
LOC: LAB 16:40
PROVIDERS: PCP Nurse Practitioner Family; Referring Provider Internal Medicine; Visit Provider Internal Medicine
DX: R14.0 Abdominal distension (gaseous) (principal); R19.4 Change in bowel habit; K63.89 Other specified diseases of intestine; K92.1 Melena
CPT/HCPCS: 83993